=== PATIENT | female | born 1950 | race Caucasian/White ===

== ENCOUNTER → 2020-02-01 11:47 | Outpatient (CLI) | payer MEDICARE, OTHER, SELFPAY ==
--- NOTE | ~2020-02-01 | MM_ITS ---
EXAMINATION: MM screening christoph BI w charlene HISTORY: Screening mammogram TECHNIQUE: Craniocaudal and mediolateral oblique 3-D tomosynthesis images were obtained and synthetic 2-D images were generated. CAD analysis was submitted and interpreted. COMPARISON: 01/01/2019 bilateral digital screening mammogram 11/05/2017 bilateral diagnostic digital mammography and bilateral breast ultrasound examination 10/31/2017 bilateral digital screening mammogram 01/29/2017, 07/24/2016 diagnostic left digital mammogram and left breast ultrasound 07/16/2016 bilateral digital screening mammogram BREAST PARENCHYMAL COMPOSITION: There are scattered areas of fibroglandular density. FINDINGS: Increased size of a low-density circumscribed 3 cm mass in the upper mid left breast. Diagn ostic left mammogram and left breast ultrasound examination are recommended. There is asymmetry in the upper mid and outer right breast, including up to 11.7 mm apparently spicul ated opacity in the upper mid right breast (craniocaudal Tomosynthesis images 37, 38/69. Diagnostic r ight mammogram and right breast ultrasound examination are recommended. IMPRESSION: 1. Bilateral breast masses 2. Bilateral diagnostic mammography and bilateral breast ultrasound examination are recommended. BI-RADS Category 0: Incomplete: Needs additional imaging evaluation. Reviewed, dictated and finalized at location A. HOUSE WHEELER
== END ==
PROVIDERS: Visit Provider Obstetrics & Gynecology Gynecology
DX: Z12.31 Encounter for screening mammogram for malignant neoplasm of breast (principal); R92.8 Other abnormal and inconclusive findings on diagnostic imaging of breast
CPT/HCPCS: 77063; 77067

== ENCOUNTER → 2020-02-22 14:13 | Outpatient (CLI) | payer MEDICARE, OTHER, SELFPAY ==
--- NOTE | ~2020-02-22 | MMUS_ITS ---
EXAMINATION: MM diagnostic mammo BI, US breast LT limited, US breast RT complete HISTORY: Follow-up bilateral breast asymmetries/masses TECHNIQUE: Additional 3-D tomosynthesis images of the breasts were performed and synthetic 2-D images were generated. CAD analysis was submitted and interpreted. Complete right breast ultrasound includi ng all 4 quadrants in the subareolar location. Limited left breast ultrasound of the upper half of th e breast. COMPARISON: Comparison to multiple prior studies sequentially, with oldest reviewed study dated 01/11. BREAST PARENCHYMAL COMPOSITION: Breast composed of scattered areas of fibroglandular density FINDINGS: MAMMOGRAPHIC FINDINGS: . There is a circumscribed oval 3.4 cm left breast mass in the upper central aspect of the breast. Th ere is a 1.3 cm mass in the upper outer quadrant of the right breast which is partially circumscribed . ULTRASOUND: Complete right breast ultrasound: At 12:00, 3 cm from the nipple, there are adjacent hypoechoic guerline s with low level internal echoes and septations. No internal vascularity. No significant posterior fe atures. Left breast ultrasound: There is a 2.9 cm cyst at the 12:00 position, 4 cm from the nipple correspond ing to the mass seen on mammography. At 9:00, 6 cm from the nipple there is a 7 mm cyst. No suspiciou s masses in the left breast to suggest malignancy. IMPRESSION: 1. Probable benign right breast masses. No evidence for malignancy in the left breast. 2. Recommend 6 month follow-up diagnostic right mammogram and ultrasound. BI-RADS category 3, probably benign findings. Reviewed, dictated and finalized at location A. T DIGESTER OPERATOR IMPRESSION: 1. Probable benign right breast masses. No evidence for malignancy in the left breast. 2. Recommend 6 month follow-up diagnostic right mammogram and ultrasound. BI-RADS category 3, probably benign findings. IMPRESSION: 1. Probable benign right breast masses. No evidence for malignancy in the left breast. 2. Recommend 6 month follow-up diagnostic right mammogram and ultrasound. BI-RADS category 3, probably benign findings.
== END ==
PROVIDERS: Visit Provider Nurse Practitioner
DX: R92.8 Other abnormal and inconclusive findings on diagnostic imaging of breast (principal)
CPT/HCPCS: 76641; 76642; 77066

== ENCOUNTER → 2020-09-01 08:49 | Outpatient (CLI) | payer MEDICARE, OTHER, SELFPAY ==
--- NOTE | ~2020-09-01 | MMUS_ITS ---
EXAMINATION: MM diagnostic christoph RT w charlene, US breast RT limited HISTORY: Follow-up right breast masses TECHNIQUE: Additional 3-D tomosynthesis images of right were performed and synthetic 2-D images were generated. CAD analysis was submitted and interpreted. High resolution Limited right breast ultrasoun d was performed. COMPARISON: Comparison to multiple prior studies sequentially, with oldest reviewed study dated 10/31. BREAST PARENCHYMAL COMPOSITION: The breasts are heterogenously dense, which may obscure small masses. FINDINGS: MAMMOGRAPHIC FINDINGS: There is stable mass in the upper outer quadrant of the right breast with ill-defined margins. There are scattered benign-appearing breast calcifications which are not significantly changed. No focal ar ea of architectural distortion is identified. No significant skin thickening. ULTRASOUND: Limited right breast ultrasound: At 12:00, 3 cm from the nipple, there is a complicated cystic mass m easuring 10 x 9 x 8 mm with internal septations and low level internal echoes. There is posterior aco ustic enhancement. No internal vascularity. No significant interval change from prior ultrasound. IMPRESSION: 1. Stable complicated cyst/s of the right breast allowing for differences of technique, likely benign . 2. Recommend 6 month follow-up diagnostic bilateral mammogram and right breast ultrasound BI-RADS category 3, probably benign findings. Reviewed, dictated and finalized at location A. IMPRESSION: 1. Stable complicated cyst/s of the right breast allowing for differences of te chnique, likely benign. 2. Recommend 6 month follow-up diagnostic bilateral mammogram and right breast ultrasound BI-RADS category 3, probably benign findings.
== END ==
PROVIDERS: PCP Internal Medicine; Visit Provider Obstetrics & Gynecology
DX: R92.8 Other abnormal and inconclusive findings on diagnostic imaging of breast (principal)
CPT/HCPCS: 76642; 77061; 77065; G0279

== ENCOUNTER → 2020-11-18 14:43 | Outpatient (CLI) | payer MEDICARE, OTHER, SELFPAY ==
--- NOTE | ~2020-11-18 | DEXA_ITS ---
Bone Density Report Name: lEizabeth Garcia Age: 70 Sex: Female Ethnicity: White Date of : 1950 Indication: osteopenia; monitoring treatment; parental hip fracture; height loss; hysterectomy; Referring Provider: AN, MCKENZIE Study: Bone densitometry was performed. Exam Date: November 18, 2020 Accession number: [id number] Bone Density: Region BMD T-score Z-score Classification AP Spine (L1-L4) 0.869 -1.6 0.5 Osteopenia Femoral Neck (Left) 0.614 -2.1 -0.3 Osteopenia Total Hip (Left) 0.933 -0.1 1.4 Normal Femoral Neck (Right) 0.673 -1.6 0.2 Osteopenia Total Hip (Right) 0.853 -0.7 0.7 Normal Total Hip Mean 0.893 -0.4 1.1 Normal World Health Organization criteria for BMD impression classify patients as: Normal (T-score at or above -1.0), Osteopenia (T-score between -1.0 and -2.5), or Osteoporosis (T-score at or below -2.5). 10-year Fracture Risk: FRAX not reported because: Treated for osteoporosis Previous Exams: Region Exam Age BMD T-score BMD Change BMD Change Date g/cm2 vs Baseline vs Previous AP Spine(L1-L4) 11/18/2020 70 0.869 -1.6 -0.077 0.038* 11/04/2018 68 0.831 -2.0 -0.115 0.069 08/07/2016 66 0.762 -2.6 -0.184* -0.022 01/11/2014 63 0.784 -2.4 -0.163 -0.113 01/07/2012 61 0.896 -1.4 -0.050* 0.058* 12/18/2010 60 0.838 -1.9 -0.108* -0.058* 11/17/2008 58 0.896 -1.4 -0.051* -0.016 07/23/2007 57 0.912 -1.2 -0.034* -0.034* 07/02/2006 56 0.946 -0.9 -0.001 -0.001 12/23/2003 53 0.946 -0.9 Total Hip(Left) 11/18/2020 70 0.933 -0.1 -0.017 0.040* 11/04/2018 68 0.893 -0.4 -0.057 0.014 08/07/2016 66 0.879 -0.5 -0.071 0.007 01/11/2014 63 0.873 -0.6 -0.077 -0.016 01/07/2012 61 0.888 -0.4 -0.062 0.022 12/18/2010 60 0.866 -0.6 -0.084 -0.021 11/17/2008 58 0.886 -0.5 -0.064 -0.104* 07/23/2007 57 0.990 0.4 0.040 0.066* 07/02/2006 56 0.924 -0.1 -0.026 -0.026 08/25/2002 52 0.950 0.1 Total Hip(Right) 11/18/2020 70 0.853 -0.7 -0.034 0.021 11/04/2018 68 0.832 -0.9 -0.056 -0.013 08/07/2016 66 0.845 -0.8 -0.042 -0.054* 01/11/2014 63 0.899 -0.4 0.011 -0.006 01/07/2012 61 0.905 -0.3 0.017 0.097* 12/18/2010 60 0.808 -1.1 -0.080
== END ==
PROVIDERS: PCP Internal Medicine; Visit Provider Nurse Practitioner
DX: M81.0 Age-related osteoporosis without current pathological fracture (principal); M85.88 Other specified disorders of bone density and structure, other site; M85.852 Other specified disorders of bone density and structure, left thigh; M85.851 Other specified disorders of bone density and structure, right thigh
CPT/HCPCS: 77080

== ENCOUNTER → 2021-03-06 07:51 | Outpatient (CLI) | payer MEDICARE, OTHER, SELFPAY ==
--- NOTE | ~2021-03-06 | MMUS_ITS ---
EXAMINATION: MM diagnostic christoph BI w charlene, US breast RT limited HISTORY: Six-month follow-up for probably benign right breast mass TECHNIQUE: Craniocaudal, mediolateral, and mediolateral oblique 3-D tomosynthesis images of the [place] ts were performed and synthetic 2-D images were generated. CAD analysis was submitted and interpreted . High resolution limited right breast ultrasound was performed. COMPARISON: 09/01/2020, 02/22/2020, 02/01/2020, 01/01/2019 BREAST PARENCHYMAL COMPOSITION: The breasts are heterogeneously dense, which may obscure small masses . FINDINGS: MAMMOGRAPHIC FINDINGS: A cyst of the left breast demonstrates interval decrease in size. No suspicious mass, calcification, or architectural distortion are identified in either breast. There are stable scattered benign-appear ing calcifications of the breasts. ULTRASOUND: There is a stable complex cystic and solid mass at the 12:00 location 5 cm from the nipple which rambo ures up to 8 mm. The mass demonstrates posterior acoustic shadowing and no internal vascularity. IMPRESSION: 1. Likely cluster of microcysts at the 12:00 location 5 cm from the nipple on the right breast. 2. Given one year of interval stability, recommend 12 month followup diagnostic mammogram and right b reast ultrasound. BI-RADS category 3, probably benign findings. Reviewed, dictated and finalized at location A. HOUSE TEAM MEMBER IMPRESSION: 1. Likely cluster of microcysts at the 12:00 location 5 cm from the nipple on t he right breast. 2. Given one year of interval stability, recommend 12 month followup diagnostic mammogram and right breast ultrasound. BI-RADS category 3, probably benign findings.
== END ==
PROVIDERS: PCP Internal Medicine; Visit Provider Obstetrics & Gynecology
DX: R92.8 Other abnormal and inconclusive findings on diagnostic imaging of breast (principal)
CPT/HCPCS: 76642; 77062; 77066; G0279

== ENCOUNTER → 2022-01-09 15:32 | Outpatient (CLI) | payer MEDICARE, OTHER, SELFPAY ==
--- NOTE | ~2022-01-09 | XR_ITS ---
XR ankle LT 2V DATE: 01/09/2022 15:48 INDICATION: Left ankle pain TECHNIQUE: AP and lateral views COMPARISON: 01/29/2021 left ankle FINDINGS: There is very prominent plantar and posterior calcaneal enthesopathy. No fracture or dislocation of the ankle or disruption of the ankle mortise. No periosteal reaction or bone destruction. Generalized left ankle soft tissue swelling. IMPRESSION: Left ankle soft tissue swelling Very prominent plantar and posterior calcaneal enthesopathy Reviewed, dictated and finalized at location B. AL SUPERVISOR
== END ==
PROVIDERS: PCP Internal Medicine; Visit Provider Nurse Practitioner Family
DX: M25.572 Pain in left ankle and joints of left foot (principal); M77.32 Calcaneal spur, left foot; M79.89 Other specified soft tissue disorders
CPT/HCPCS: 73600

== ENCOUNTER → 2022-04-13 07:46 | Outpatient (CLI) | payer MEDICARE, OTHER, SELFPAY ==
--- NOTE | ~2022-04-13 | MMUS_ITS ---
EXAMINATION: MM diagnostic christoph BI w charlene, US breast BI complete HISTORY: Follow-up bilateral breast nodules TECHNIQUE: Additional 3-D tomosynthesis images of the breasts were performed and synthetic 2-D images were generated. CAD analysis was submitted and interpreted. High resolution bilateral complete breas t ultrasound was performed. COMPARISON: Comparison to multiple prior studies sequentially, with oldest reviewed study dated 11/05. BREAST PARENCHYMAL COMPOSITION: The breasts are heterogeneously dense, which may obscure small masses FINDINGS: MAMMOGRAPHIC FINDINGS: The breasts are stable. No new masses, calcifications or architectural distortion. Stable appearance to nodule in the lower inner quadrant of the left breast. No suspicious clustered calcifications or a rchitectural distortion. ULTRASOUND: Complete bilateral US of all 4 quadrants of the breasts and retroareolar region was reviewed. Right breast:At 12:00, 4 cm from the nipple, there are 2 oval hypoechoic masses with low level campus interviews intern al echoes measuring 4 mm or less. These are not significantly changed from prior examination allowing for differences of technique. At 3:00, 3 cm from the nipple there is a 3 mm cyst. At 8:00, 10 cm fro m the nipple appears a 3 mm cyst. There is an adjacent 3 mm cyst. At 11:00, 2 cm from the nipple ther e is a cluster of cysts measuring up to 5 mm. Left breast: At 2:00, 2 cm from the nipple there is a 7 mm cyst. At 4:00, 5 cm from the nipple there is a 4 mm cyst. At 8:00, 6 cm from the nipple there is a 6 mm cyst. No suspicious masses in either br east to suggest malignancy. IMPRESSION: 1. No evidence for malignancy in either breast. Benign findings. 2. Routine yearly screening mammogram and regular clinical breast examination are recommended. BI-RADS Category 2: Benign finding(s). Reviewed, dictated and finalized at location B. VANCE COORDINATOR IMPRESSION: 1. No evidence for malignancy in either breast. Benign findings. 2. Routine yearly screening mammogram and regular clinical breast examination a re recommended. BI-RADS Category 2: Benign finding(s).
== END ==
PROVIDERS: PCP Internal Medicine; Visit Provider Obstetrics & Gynecology Gynecology
DX: N60.01 Solitary cyst of right breast (principal)
CPT/HCPCS: 76641; 77062; 77066; G0279

== ENCOUNTER 2022-09-18 08:16 | Outpatient (RCR) | payer MEDICARE, OTHER, SELFPAY ==
[2022-09-18 08:15] VITALS: BMI 35.3
--- NOTE | 2022-09-21 14:04 | PCDIET ---
09/21/2022 Elizabeth reached out inquiring re: specific kcal, grams CHO, Protein and fats. - Per conversation she reports wanting something specific to follow. She says she works better that way . Discussed 1600 kcal/day target ~ 55 gms CHO/meal. - Emphasized balance portions. (plate method) - additional details to be discussed at follow up in October - Encouraged to bring 2 day food log to follow up allowing us to personalize meal plan. FJ
--- NOTE | 2022-10-29 12:40 | PCDIET ---
10/29/22 Pt called to cancel upcoming appt due to father is dying . She is going out of town to see him, unclear when return. Reports she's lost wt also stating I have a long way to go .
== END 2022-12-03 09:52 | disposition home or self-care (01) ==
LOC: ANHDMC 08:16
PROVIDERS: PCP Internal Medicine; Visit Provider Internal Medicine
DX: E11.9 Type 2 diabetes mellitus without complications (principal); E66.09 Other obesity due to excess calories; Z68.32 Body mass index [BMI] 32.0-32.9, adult; Z71.3 Dietary counseling and surveillance
CPT/HCPCS: 97802

== ENCOUNTER → 2022-12-05 11:43 | Outpatient (CLI) | payer MEDICARE, OTHER, SELFPAY ==
--- NOTE | ~2022-12-05 | DEXA_ITS ---
Bone Density Report Name: CANDIDA KEATING Age: 72 Sex: Female Ethnicity: White Date of : 1950 Indication: osteopenia; monitoring treatment; parental hip fracture; height loss; hysterectomy; postmenopausal Referring Provider: MURALI TENA Study: Bone densitometry was performed. Exam Date: December 05, 2022 Accession number: [id number] Bone Density: Region BMD T-score Z-score Classification AP Spine (L1, L3, L4) 0.877 -1.6 0.6 Osteopenia Femoral Neck (Left) 0.704 -1.3 0.6 Osteopenia Total Hip (Left) 0.941 0.0 1.6 Normal Femoral Neck (Right) 0.719 -1.2 0.7 Osteopenia Total Hip (Right) 0.887 -0.5 1.1 Normal Total Hip Mean 0.914 -0.3 1.4 Normal World Health Organization criteria for BMD impression classify patients as: Normal (T-score at or above -1.0), Osteopenia (T-score between -1.0 and -2.5), or Osteoporosis (T-score at or below -2.5). 10-year Fracture Risk: FRAX not reported because: Treated for osteoporosis Previous Exams: Region Exam Age BMD T-score BMD Change BMD Change Date g/cm2 vs Baseline vs Previous AP Spine(L1, L3, L4) 12/05/2022 72 0.877 -1.6 -0.029 0.034 11/18/2020 70 0.843 -1.9 -0.063 0.047* 11/04/2018 68 0.795 -2.3 -0.111 0.073 08/07/2016 66 0.722 -3.0 -0.184* -0.044 01/11/2014 63 0.766 -2.6 -0.140 -0.107 01/07/2012 61 0.873 -1.6 -0.032* 0.063* 12/18/2010 60 0.810 -2.2 -0.096* -0.057* 11/17/2008 58 0.867 -1.7 -0.039* -0.023* 07/23/2007 57 0.890 -1.5 -0.016 -0.016 12/23/2003 53 0.906 -1.3 Total Hip(Left) 12/05/2022 72 0.941 0.0 -0.009 0.008 11/18/2020 70 0.933 -0.1 -0.017 0.040* 11/04/2018 68 0.893 -0.4 -0.057 0.014 08/07/2016 66 0.879 -0.5 -0.071 0.007 01/11/2014 63 0.873 -0.6 -0.077 -0.016 01/07/2012 61 0.888 -0.4 -0.062 0.022 12/18/2010 60 0.866 -0.6 -0.084 -0.021 11/17/2008 58 0.886 -0.5 -0.064 -0.104* 07/23/2007 57 0.990 0.4 0.040 0.040 08/25/2002 52 0.950 0.1 Total Hip(Right) 12/05/2022 72 0.887 -0.5 -0.001 0.034* 11/18/2020 70 0.853 -0.7 -0.034 0.021 11/04/2018 68 0.832 -0.9 -0.056 -0.013 08/07/2016 66 0.845 -0.8 -0.042 -0.054* 01/11/2014 63 0.899 -0.4 0.011 -0.006 01/07/2012 [age]
== END ==
PROVIDERS: PCP Internal Medicine; Visit Provider Obstetrics & Gynecology Gynecology
DX: Z13.820 Encounter for screening for osteoporosis (principal); M81.0 Age-related osteoporosis without current pathological fracture; M85.88 Other specified disorders of bone density and structure, other site; M85.852 Other specified disorders of bone density and structure, left thigh; M85.851 Other specified disorders of bone density and structure, right thigh
CPT/HCPCS: 77080

== ENCOUNTER 2023-05-21 08:09 | Outpatient (CLI) | payer MEDICARE, OTHER, SELFPAY ==
--- NOTE | ~2023-05-21 | MM_ITS ---
EXAMINATION: MM screening christoph BI w charlene HISTORY: Screening mammogram TECHNIQUE: Craniocaudal and mediolateral oblique 3-D tomosynthesis images were obtained and synthetic 2-D images were generated. CAD analysis was submitted and interpreted. COMPARISON: 04/13/2022 diagnostic bilateral mammogram and bilateral complete breast ultrasound 03/02/2021 bilateral diagnostic mammography and Limited right breast ultrasound 09/01/2020 diagnostic right mammogram and limited right breast ultrasound 02/22/2020 bilateral diagnostic mammography and complete right and limited left breast ultrasound 02/01/2020 bilateral screening mammogram BREAST PARENCHYMAL COMPOSITION: There are scattered areas of fibroglandular density. FINDINGS: There are scattered bilateral benign-appearing microcalcifications. There is an 8 mm circumscribed mass in the anterior outer mid left breast. Diagnostic left mammogram and targeted left breast ultrasound examination are recommended. No suspicious mass, architectural distortion, malignant calcification, skin thickening or retraction of either breast is noted otherwise. IMPRESSION: 1. New 8 mm circumscribed mass, anterior outer mid left breast 2. Diagnostic left mammogram and targeted left breast ultrasound examination are recommended BI-RADS Category 0: Incomplete: Needs additional imaging evaluation. Reviewed, dictated and finalized at location A. IMPRESSION: 1. New 8 mm circumscribed mass, anterior outer mid left breast 2. Diagnostic left mammogram and targeted left breast ultrasound examination ar joe recommended BI-RADS Category 0: Incomplete: Needs additional imaging evaluation.
== END 2023-05-21 08:10 ==
LOC: MICIMG 08:12
PROVIDERS: PCP Nurse Practitioner; Visit Provider Nurse Practitioner
DX: Z12.31 Encounter for screening mammogram for malignant neoplasm of breast (principal); R92.8 Other abnormal and inconclusive findings on diagnostic imaging of breast
CPT/HCPCS: 77063; 77067

== ENCOUNTER 2023-05-24 08:20 | Outpatient (CLI) | payer MEDICARE, OTHER, SELFPAY ==
--- NOTE | ~2023-05-24 | MMUS_ITS ---
EXAMINATION: MM diagnostic christoph LT w charlene, US breast LT limited HISTORY: Follow-up left breast asymmetry TECHNIQUE: Additional 3-D tomosynthesis images of the left breast were performed and synthetic 2-D im ages were generated. CAD analysis was submitted and interpreted. High resolution Limited left breast ultrasound was performed. COMPARISON: 05/21/2023 BREAST PARENCHYMAL COMPOSITION: Dense: The breasts are heterogeneously dense, which may obscure small masses FINDINGS: MAMMOGRAPHIC FINDINGS: There is a persistent mass in the upper outer quadrant of the left breast. There are no suspicious ca lcifications or architectural distortion. ULTRASOUND: Limited left breast ultrasound: At 3:00, 4 cm from the nipple, there is a 7 mm simple cyst correspond ing to the mammographic finding. No suspicious sonographic abnormalities to suggest malignancy. IMPRESSION: 1. No evidence for malignancy in the left breast. Benign finding. 2. . Routine yearly screening mammogram and regular clinical breast examination are recommended. BI-RADS Category 2: Benign finding(s). Reviewed, dictated and finalized at location A. IMPRESSION: 1. No evidence for malignancy in the left breast. Benign finding. 2. . Routine yearly screening mammogram and regular clinical breast examination are recommended. BI-RADS Category 2: Benign finding(s).
== END 2023-05-24 08:21 ==
PROVIDERS: PCP Internal Medicine; Visit Provider Obstetrics & Gynecology Gynecology
DX: R92.8 Other abnormal and inconclusive findings on diagnostic imaging of breast (principal)
CPT/HCPCS: 76642; 77061; 77065; G0279

== ENCOUNTER 2024-02-11 12:54 | Inpatient (IN) | payer MEDICARE, OTHER, SELFPAY ==
--- NOTE | ~2024-02-11 | XR_ITS ---
EXAMINATION: XR surgery orthopedic DATE: 02/12/2024 09:37 INDICATION: Left femoral intertrochanteric nailing TECHNIQUE: A fluoroscopic images of the left hip and proximal femur were obtained during procedure pe rformed by Dr. Russell. Radiologist was not present for the imaging or procedure. The amount of fluo roscopy time used during this procedure was 2.5 minutes. COMPARISON: None. FINDINGS: Again seen is an intratrochanteric fracture of the proximal left femur. Subsequent images demonstrate reduction and antegrade intramedullary citlalli with femoral neck dynamic compression screw fixation. Fra cture appears in near-anatomic alignment post fixation. Mild left hip osteoarthritis. Expected small amount of postoperative soft tissue gas at the operative bed. IMPRESSION: 1. Fluoroscopy utilized during reduction and internal fixation of an intratrochanteric fracture of th e proximal left femur. See procedure note for further detail. Reviewed, dictated and finalized at location A. SPORTATION MODELER IMPRESSION: 1. Fluoroscopy utilized during reduction and internal fixation of an intratroch anteric fracture of the proximal left femur. See procedure note for further det ail.
--- NOTE | ~2024-02-11 | XR_ITS ---
AP view of the pelvis and AP and lateral views of the left hip Clinical history: Pain Findings: There is acute intertrochanteric fracture of the proximal left femur. Fracture is mildly di splaced.. There is mild degenerative change of the superolateral aspect of the left hip joint.. Soft tissues are unremarkable. Impression: Acute intertrochanteric fracture of the proximal left femur, as above. Reviewed, dictated and finalized at location . D CARE CENTER ADMINISTRATOR Impression: Acute intertrochanteric fracture of the proximal left femur, as above.
--- NOTE | ~2024-02-11 | XR_ITS ---
EXAMINATION: XR chest 1V portable DATE: 02/12/2024 06:24 INDICATION: Left hip fracture for preoperative assessment TECHNIQUE: frontal view of the chest was obtained. COMPARISON: Chest CT dated 08/19/2014 FINDINGS: Mild linear discoid atelectasis/scarring at the lateral left lower lung zone. Subtle chronic nodular opacity projecting along the left heart border which demonstrated fat attenuation on prior CT consist ent with a benign hamartoma. No other airspace opacities, pulmonary edema, pleural effusion or pneumo thorax. Heart size is normal. Tortuous thoracic aorta and small hiatal hernia. IMPRESSION: 1. Mild atelectasis/scarring at the lateral left lower lung zone. No acute cardiopulmonary disease. 2. Small hiatal hernia. Reviewed, dictated and finalized at location A. GER AREA IMPRESSION: 1. Mild atelectasis/scarring at the lateral left lower lung zone. No acute card iopulmonary disease. 2. Small hiatal hernia.
[2024-02-11 12:57] VITALS: BP 181/115; PULSE 100; RESP 17; TEMP 37.1; O2SAT 100
[2024-02-11] MEDS: HYDROcodone/acetaminophen (*CRX) 5-325 MG TABLET 1 TAB PO (13:40)
--- NOTE | 2024-02-11 14:07 | ED_ITS ---
HPI - Fall General Chief Complaint: Fall Stated Complaint: mechanical GLF, L hip pain Time Seen by Provider: 02/11/24 13:04 Source: patient and EMS Mode of arrival: EMS Limitations: no limitations History of Present Illness HPI Narrative: Patient presents after mechanical fall. She was at work but leaving to go to lunch when she states she mis-stepped. She fell and immediately experienced left hip pain. Pain is 10/10 severity. EMS noted that her leg was shortened and rotated. She denies any paresthesias. Patient previously underwent left knee replacement electively with Dr. Arsalan Weaver through [facility] at [place] and the procedure went well although she did have significant muscle spasms after the surgery. She had been trialing multiple medications in regimens for this as well as her osteoarthritis. Currently on Celebrex. Not on anticoagulation. Patient states she has a lot of anxiety about being in hospital as she spent several months with her son in hospital who ultimately did pass away a few years ago on 02/12 so that anniversary is coming up. PCP/OBGyn is Dr Mckeon. Related Data Home Medications ?Medication ?Instructions ?Recorded ?Confirmed ?Last Taken ?Type cholecalciferol (vitamin D3) 1,250 50,000 unit PO 2XW 03/19/19 02/11/24 Unknown History mcg (50,000 unit) capsule estradiol 4 mcg vaginal insert 4 mcg vaginal 2XW 03/19/19 02/11/24 Unknown History (Imvexxy Maintenance Pack) calcium carbonate [Calcium 600] 1 tablet PO BID 11/04/23 02/11/24 02/11/24 History celecoxib 100 mg capsule (Celebrex) 100 mg PO BID PRN pain 11/04/23 02/11/24 Unknown History Allergies Allergy/AdvReac Type Severity Reaction Status Date / Time Sulfa (Sulfonamide Allergy Unknown Rash Verified 02/11/24 13:05 Antibiotics) ezetimibe Allergy Cramping Verified 02/11/24 13:05 of the Muscles tramadol AdvReac Severe Verified 02/11/24 13:05 Headache PMFSH Past Medical History Medical History White coat syndrome with hypertension Dyslipidemia Type 2 diabetes mellitus Degenerative joint disease Vitamin D deficiency Herpes zoster Surgical History Surgical History (Updated 02/13/24 @ 06:13 by Genny Toledo MD) History of arthroplasty of right knee (05/2023) Dr Arsalan Weaver [facility] [place] History of tonsillectomy History of total abdominal hysterectomy (2000) History of appendectomy Family History Family History Other Diabetes mellitus Social History Social History (Updated 02/13/24 @ 06:10 by Genny Toledo MD) Social History: Son on February 12 after prolonged hospitalization Surrogate medical decision maker: Peri Barker, daughter. Code status: Full code. Smoking status: Never smoker Alcohol intake: never Substance use: never Do You Feel Safe in your Home?: Yes Lack of Transportation: No Lack of Food: Never True Current Housing: I Have Housing Concerned About Future Housing: No Difficulty Paying Gas/Electric Bills: No Difficulty Paying for Meds: No Currently Unemployed: No Education: Associate Degree Difficulty w/ Childcare or Family Care: No Additional living arrangements comments: Lives alone in [place]. 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 Spiritual care concerns: No Exam 2 Narrative: GENERAL: Well-appearing, well-nourished, and in no acute distress. HEAD: Normocephalic, atraumatic. EYES: Non injected, non icteric ENT: Nares clear, no rhinorrhea or epistaxis. NECK: Supple. CHEST: Speaking in full sentences. No respiratory distress. HEART: Regular rate and rhythm. Palpable DP pulse on L. ABDOMEN: Soft, nondistended. EXTREMITIES: No lower extremity edema. Left leg shortened and rotated. SKIN: Warm, dry, no rash. NEURO: No focal deficits. Alert and oriented x3. Sensation intact to gross touch throughout legs. 5/5 strength with bilateral ankle flexion/dorsiflexion though full ROM limited secondary to pain. PSYCH: Congruent mood and affect. Slightly anxious but calm , engaged in care. Course Vital Signs Vital signs: Vital Signs Temperature 98.8 F 02/11/24 12:57 Pulse Rate 100 02/11/24 12:57 Respiratory Rate 17 02/11/24 12:57 Blood Pressure 181/115 H 02/11/24 12:57 Pulse Oximetry 100 02/11/24 12:57 Oxygen Delivery Room Air 02/11/24 12:57 Temperature 98.1 F 02/13/24 05:15 Pulse Rate 81 02/13/24 05:15 Respiratory Rate 18 02/13/24 05:15 Blood Pressure 128/53 L 02/13/24 05:15 Pulse Oximetry 94 02/13/24 05:15 Oxygen Delivery Room Air 02/12/24 20:00 Oxygen Flow Rate 2 02/12/24 11:15 MDM - Fall MDM Narrative Medical decision making narrative: Patient presents after an accidental mechanical fall with acute onset left hip pain and on physical exam noted to have a shortened and rotated leg. In the emergency department she is afebrile vital signs notable for hypertension. Fracture as below. [place] has not managed symptoms and so she is given Dilaudid and feels much better after this. Anthony catheter be placed given she is nonweightbearing at this time. She has hyperglycemia without anion gap acidosis. Patient does inquire about contacting her previous orthopedic surgeon Dr Arsalan Weaver , [facility] at [place] who performed her previous orthopedic surgery, left knee replacement. I did 1st discussed the case with on-call orthopedic surgeon Dr. Russell who did agree that it was reasonable and appropriate to try but if unsuccessful, he would take the consult. Brionna CHILD SUPPORT OFFICER for Orthopedics at [place] at 15:00. Unfortunately Dr Weaver unavailable all week and no one else available at this time. Discussed with patient and her daughter via phone. Patient does have significant medical anxiety as a patient which she acknowledges. Some of this is related to significant muscle spasms that she had after her left knee replacement surgery but also significant is the fact that she spent several months with her son in a hospital and ultimately he did a few years ago on February 12 and we are approaching the anniversary of his . Patient is otherwise calm and appropriate. She is offered anxiolytics but does decline at this time she states she is feeling better. Patient discussed with on-call hospitalist and admitted. Lab Data Attestation: I reviewed the patient's lab results. Lab results narrative: Leukocytosis 02/13/24 05:27 02/13/24 05:27 Labs: Lab Results 02/11/24 02/12/24 02/12/24 Range/Units 14:43 05:35 08:10 WBC 12.2 H 11.1 H (4.5-10.0) K/mm3 RBC 4.66 4.38 (4.2-5.4) M/mm3 Hgb 12.3 11.6 L (12.0-15.0) g/dL Hct 38.8 35.8 L (37.0-47.0) % MCV 83.3 81.7 (80-100) fl MCH 26.4 26.5 (26-34) pg MCHC 31.7 L 32.4 (32-36) g/dl RDW 15.7 H 15.6 H (11.5-14.5) % Plt Count 253 227 (150-375) k/mm3 MPV 10.9 H 11.0 H (7.4-10.4) fl Immature Gran % (Auto) 0.7 H (0-0.5) % Neut % (Auto) 78.2 H (45.5-73.1) % Lymph % (Auto) 11.9 L (18.3-44.2) % [place] % (Auto) 7.9 (2.6-8.5) % Eos % (Auto) 0.7 (0-4.4) % Baso % (Auto) 0.6 (0.2-1.2) % Lymph # (Auto) 1.46 (0.9-3.2) K/mm3 [place]pine # (Auto) 1.0 H (0.1-0.6) K/mm3 Eos # (Auto) 0.1 (0-0.3) K/mm3 Baso # (Auto) 0.1 (0.0-0.1) K/mm3 Abs Immat Gran (auto) 0.08 H (0.00-0.031) K/mm3 Absolute Neuts (auto) 9.6 H (1.3-6.7) K/mm3 Absolute Nucleated RBC 0.000 (0.0-0.012) K/mm3 Nucleated RBC % 0.0 (0.0-0.2) % PT 13.6 (11.1-14.7) Seconds INR 1.0 APTT 25.1 (22.3-36.8) Seconds Sodium 139 134 L (137-145) mmol/L Potassium 3.8 3.7 (3.4-5.0) mmol/L Chloride 107 105 (98-107) mmol/L Carbon Dioxide 29 25 (22-30) mmol/L Anion Gap 3 L 4 (4-12) mmol/L BUN 22 H 18 H (7-17) mg/dL Creatinine 0.80 0.70 (0.7-1.0) mg/dL Estim Creat Clear Calc 66 74 ml/min Estimated GFR > 60 > 60 (59 - ) Glucose 138 H 145 H (65-110) mg/dL POC Capillary Glucose 150 H (65-105) mg/dl Calcium 9.4 9.0 (8.4-10.2) mg/dL Total Bilirubin 1.1 (0.2-1.3) mg/dL AST 29 (14-36) U/L ALT 21 (6-35) U/L Alkaline Phosphatase 90 (38-126) U/L Total Protein 7.0 (6.3-8.2) g/dL Albumin 3.9 (3.5-5.1) g/dL Imaging Data Radiologist's impression: Impression: Acute intertrochanteric fracture of the proximal left femur, as above. Discharge Plan Discharge Clinical Impression: Hyperglycemia, Fall, Leukocytosis Closed intertrochanteric fracture of left femur Qualifiers: Encounter type: initial encounter Patient Disposition: Still a Patient Condition: Stable
[2024-02-11] MEDS: HYDROmorphone HCL INJ (*CRX) 1 MG/ML SYR IV PUSH ×2 (14:32→21:39)
[2024-02-11 14:52] LABS: Basophils Absolute Auto 0.1 K/mm3 (0.0-0.1); Basophils Percent Auto 0.6 % (0.2-1.2); Eosinophils Absolute Auto 0.1 K/mm3 (0-0.3); Eosinophils Percent Auto 0.7 % (0-4.4); Hematocrit 38.8 % (37.0-47.0); Hemoglobin 12.3 g/dL (12.0-15.0); Immature Granulocyte Absolute 0.08 K/mm3 (0.00-0.031); Immature Granulocyte Percent A 0.7 % (0-0.5); Lymphocytes Absolute Auto 1.46 K/mm3 (0.9-3.2); Lymphocytes Percent Auto 11.9 % (18.3-44.2); Mean Corpuscular HGB Conc 31.7 g/dl (32-36); Mean Corpuscular Hemoglobin 26.4 pg (26-34); Mean Corpuscular Volume 83.3 fl (80-100); Mean Platelet Volume 10.9 fl (7.4-10.4); Monocytes Percent Auto 7.9 % (2.6-8.5); Neutrophils Absolute Auto 9.6 K/mm3 (1.3-6.7); Neutrophils Percent Auto 78.2 % (45.5-73.1); Platelet Count Result 253 k/mm3 (150-375); Red Blood Count 4.66 M/mm3 (4.2-5.4); Red Cell Distribution Width 15.7 % (11.5-14.5); White Blood Count 12.2 K/mm3 (4.5-10.0)
[2024-02-11 15:01] LABS: Prothrombin Time 13.6 Seconds (11.1-14.7)
[2024-02-11 15:02] LABS: Anion Gap 3 mmol/L (4-12); Blood Urea Nitrogen 22 mg/dL (7-17); Calcium 9.4 mg/dL (8.4-10.2); Carbon Dioxide 29 mmol/L (22-30); Chloride 107 mmol/L (98-107); Estimated CRCL calculation 66 ml/min; Estimated Glomerular Filt Rate > 60; Glucose 138 mg/dL (65-110); Partial Thromboplastin Time 25.1 Seconds (22.3-36.8); Potassium 3.8 mmol/L (3.4-5.0); Sodium 139 mmol/L (137-145)
[2024-02-11 17:10] VITALS: BP 188/86; PULSE 91; RESP 18; O2SAT 98
[2024-02-11 17:45] VITALS: BMI 35.2
--- NOTE | 2024-02-11 17:45 | ADMGEN ---
This patient, Elizabeth Garcia, was admitted to Medical Room 252-01. Patient/family oriented to hospital policies and general routines including ID bracelet, bed and alarms, visiting hours, pain management, procedures, bathroom and other care routines, personal items, smoking policy, room service/diet, and visiting hours. Information on how to activate the Rapid Response Team has been discussed. Patient/Family are encouraged to report perceived risks to care and to ask questions if they do not understand what they are told or what they should do.
[2024-02-11] MEDS: HYDROmorphone HCL INJ (*CRX) 1 MG/ML SYR 0.5 MG IV PUSH (18:08)
[2024-02-11 18:40] VITALS: BP 154/75; PULSE 91; RESP 16; O2SAT 98
--- NOTE | 2024-02-11 19:06 | ECG_ITS ---
Test Date: 2024-02-12 07:36:04 Measurements Intervals [place] Rate: 87 P: 50 MO: 150 QRS: 41 QRSD: 84 T: 29 QT: 371 QTc: 447 Interpretive Statements SINUS RHYTHM No previous ECG available for comparison Electronically Signed On 02-17-2024 10:13:39 MANAGER STYLIST by Luke Javier M.D.
[2024-02-11 21:31] VITALS: BP 148/91; PULSE 92; RESP 14; TEMP 36.9; O2SAT 100
--- NOTE | 2024-02-11 23:53 | PM.IMHP ---
H&P: HPI History of Present Illness Date/Time: 02/11/24 23:30 Chief Complaint: Left hip pain after a fall. Narrative: This is a very pleasant 73-year-old female with degenerative joint disease, dyslipidemia, white coat syndrome with hypertension, and type 2 diabetes mellitus who presented to the emergency department via EMS for evaluation of left hip pain after fall. The patient provides the following history. While leaving work today she tripped on a curb and fell hard onto her left side with immediate pain in her left hip. There was no head trauma or loss of consciousness in the fall and she has no other complaints besides the left hip pain. She denies lightheadedness, dizziness, recent cold and flu symptoms, chest pain, pleuritic pain, palpitations, vomiting, diarrhea, and dysuria. Of note, she recently finished antibiotics for a dental abscess of the left upper molar and she is in a process of having a root canal done in upcoming weeks. She is not have any pain or discomfort at this time. In the ED: Blood pressure was 181/115 on arrival in the remainder of her vital signs were stable. Labs were significant for WBC count of 12.2, platelet 253, INR 1.0, BUN 22, creatinine 0.80, glucose 138. Radiograph showed an acute inter trochanteric fracture of the proximal left femur. She is being admitted in this setting for pain control and orthopedic consultation for repair. Review of Systems Review of Systems: 12 systems were reviewed and are negative except for as per HPI. [facility] Past Medical History Medical History (Updated 02/12/24 @ 06:48 by Ashli Dang PA-C) White coat syndrome with hypertension Dyslipidemia Type 2 diabetes mellitus Degenerative joint disease Vitamin D deficiency Herpes zoster Surgical History Surgical History History of arthroplasty of right knee (05/2023) History of arthroscopy of right knee History of tonsillectomy History of total abdominal hysterectomy (2000) History of appendectomy Family History Family History Other Diabetes mellitus Social History Social History (Updated 02/12/24 @ 06:48 by Ashli Dang PA-C) Social History: Surrogate medical decision maker: Peri Barker, daughter. Code status: Full code. Smoking status: Never smoker Alcohol intake: never Substance use: never Do You Feel Safe in your Home?: Yes Lack of Transportation: No Lack of Food: Never True Current Housing: I Have Housing Concerned About Future Housing: No Difficulty Paying Gas/Electric Bills: No Difficulty Paying for Meds: No Currently Unemployed: No Education: Associate Degree Difficulty w/ Childcare or Family Care: No Additional living arrangements comments: Lives alone in [place]. 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 Spiritual care concerns: No Meds Home Medications and Allergies Home Medications ?Medication ?Instructions ?Recorded ?Confirmed ?Type cholecalciferol (vitamin D3) 1,250 50,000 unit PO 2XW 03/19/19 02/11/24 History mcg (50,000 unit) capsule estradiol 4 mcg vaginal insert 4 mcg vaginal 2XW 03/19/19 02/11/24 History (Imvexxy Maintenance Pack) calcium carbonate [Calcium 600] 1 tablet PO BID 11/04/23 02/11/24 History celecoxib 100 mg capsule (Celebrex) 100 mg PO BID PRN pain 11/04/23 02/11/24 History fenofibrate 160 mg tablet 160 mg PO DAILY #90 tabs 11/04/23 02/11/24 Rx Allergies Allergy/AdvReac Type Severity Reaction Status Date / Time Sulfa (Sulfonamide Allergy Unknown Rash Verified 02/11/24 13:05 Antibiotics) ezetimibe Allergy Cramping Verified 02/11/24 13:05 of the Muscles tramadol AdvReac Severe Verified 02/11/24 13:05 Headache Vital Signs Vital Signs - 24 hr 02/11/24 12:57 02/11/24 17:10 02/11/24 17:45 Temperature 98.8 F Pulse Rate 100 91 Respiratory Rate 17 18 Blood Pressure 181/115 H 188/86 H Pulse Oximetry 100 98 Oxygen Delivery Room Air Room Air 02/11/24 18:40 02/11/24 20:00 02/11/24 21:31 Temperature 98.5 F Pulse Rate 91 92 Respiratory Rate 16 14 Blood Pressure 154/75 H 148/91 H Pulse Oximetry 98 100 Oxygen Delivery Room Air Exam Narrative: General: Well-developed, nontoxic-appearing female supine in bed in no acute distress. Weight: 90.9 kg. BMI: 35.2. HEENT: Normocephalic, atraumatic. PERRL, EOMI. Sclera anicteric. Oral mucosa moist. Neck: Supple. Respiratory: Lungs are clear to auscultation bilaterally. Cardiovascular: Regular rate and rhythm with S1-S2. Gastrointestinal: Abdomen is soft, nontender, and nondistended with positive bowel sounds. Skin: Warm and dry. No rash or lesions on limited exam. Extremities: No cyanosis, clubbing, or edema. Radial and pedal pulses intact. Musculoskeletal: Left leg is shortened and externally rotated. Mild swelling about the left hip. No gross deformity. Neurological: Alert. Cranial nerves 2-12 are grossly intact. No gross focal deficits to casual conversation. Psychiatric: Pleasant and cooperative with normal mood and affect. Judgment and insight intact. H&P: Results Labs Labs: Short CBC 02/11/24 Range/Units 14:43 WBC 12.2 H (4.5-10.0) K/mm3 Hgb 12.3 (12.0-15.0) g/dL Hct 38.8 (37.0-47.0) % Plt Count 253 (150-375) k/mm3 BMP 02/11/24 14:43 Sodium 139 Potassium 3.8 Chloride 107 Carbon Dioxide 29 BUN 22 H Creatinine 0.80 Glucose 138 H Calcium 9.4 Impressions Hip/Pelvis X-Ray 02/11/24 13:36 Impression: Acute intertrochanteric fracture of the proximal left femur, as above. Assessment and Plan Assessment and plan (1) Closed intertrochanteric fracture of left femur: Qualifiers: Encounter type: initial encounter Code(s): S72.142A - Displaced intertrochanteric fracture of left femur, initial encounter for closed fracture Status: Acute (2) Type 2 diabetes mellitus: Code(s): E11.9 - Type 2 diabetes mellitus without complications Status: Acute (3) White coat syndrome with hypertension: Code(s): I10 - Essential (primary) hypertension Status: Acute (4) Dyslipidemia: Code(s): E78.5 - Hyperlipidemia, unspecified Status: Acute Plan The patient presented to the emergency department for evaluation of left hip pain after mechanical fall as detailed in HPI. Labs, imaging, EKG, and all reports were personally reviewed. Radiographs show an inter trochanteric fracture of the left hip. Analgesics and antiemetics are available as needed. She will be NPO after midnight for probable surgical repair tomorrow. Blood pressures have been running high, likely due to pain, and will be monitored closely. She admits that she has pretty significant white coat hypertension. She is not currently on medication for her blood pressures. Random glucose was 138 her most recent hemoglobin A1c was 6.5%. Initiate sliding scale insulin, Accu-Cheks, and hypoglycemic protocol. Her home medications will be reviewed and resumed as appropriate. Findings and treatment plan were discussed with the patient. Questions were solicited and answered to satisfaction. The patient's medical management will be taken over by the hospitalist team in a.m. Quality VTE Prophylaxis VTE prophylaxis: mechanical ordered If No VTE Prophylaxis Answer both mechanical and pharmacologic: Reason no pharmacologic proph: medical contraindication (anticipate surgery tomorrow) The patient has been admitted under observation status. Hospitalist [facility] Advance Care Plan I have confirmed that the patient's Advanced Care Plan is present, code status is documented, or surrogate decision maker is listed in patient medical record.: Yes Medication Reconciliation I have utilized all available resources to obtain, update and review the patients current medications (includes all prescriptions, OTC, herbals, cannabis, and nutritional supplements).: Yes
[2024-02-12] VITALS (14 sets, daily range): BP systolic 144–186; BP diastolic 58–91; PULSE 75–91; RESP 12–19; TEMP 36.3–37.3; O2SAT 96–100
[2024-02-12] MEDS: HYDROmorphone HCL INJ (*CRX) 1 MG/ML SYR IV PUSH ×4 (00:55→16:51)
[2024-02-12 06:00] LABS: Hematocrit 35.8 % (37.0-47.0); Hemoglobin 11.6 g/dL (12.0-15.0); Mean Corpuscular HGB Conc 32.4 g/dl (32-36); Mean Corpuscular Hemoglobin 26.5 pg (26-34); Mean Corpuscular Volume 81.7 fl (80-100); Platelet Count Result 227 k/mm3 (150-375); Red Blood Count 4.38 M/mm3 (4.2-5.4); Red Cell Distribution Width 15.6 % (11.5-14.5); White Blood Count 11.1 K/mm3 (4.5-10.0)
[2024-02-12 06:11] LABS: Alanine Aminotransferase 21 U/L (6-35); Albumin Level 3.9 g/dL (3.5-5.1); Alkaline Phosphatase 90 U/L (38-126); Anion Gap 4 mmol/L (4-12); Aspartate Amino Transferase 29 U/L (14-36); Bilirubin,Total 1.1 mg/dL (0.2-1.3); Blood Urea Nitrogen 18 mg/dL (7-17); Carbon Dioxide 25 mmol/L (22-30); Chloride 105 mmol/L (98-107); Estimated CRCL calculation 74 ml/min; Estimated Glomerular Filt Rate > 60; Glucose 145 mg/dL (65-110); Potassium 3.7 mmol/L (3.4-5.0); Sodium 134 mmol/L (137-145)
--- NOTE | 2024-02-12 07:09 | P.CONOP_ITS ---
Assessment and Plan Assessment and plan (1) Closed intertrochanteric fracture of left femur: Qualifiers: Encounter type: initial encounter Code(s): S72.142A - Displaced intertrochanteric fracture of left femur, initial encounter for closed fracture Status: Acute Assessment and Plan: Patient has an intertrochanteric fracture of her left hip. She slipped and fell and has shortening and pain in the leg. She was ambulatory before this. Clearly she would benefit from open reduction internal fixation. I have discussed this in detail risks benefits limitations and alternatives. We will proceed today. History of Present Illness HPI Consult date: 02/12/24 Chief complaint: Left Intertrochanteric Femur Fracture Narrative: Patient tripped and fell suffering an intertrochanteric fracture of the left hip. Review of Systems 2 Review of Systems: 12 systems were reviewed and are negativ e except for as per HPI. FORMERLY [facility], [facility]–1983 Past Medical History Medical History (Updated 02/12/24 @ 06:48 by Ashli Dang PA-C) White coat syndrome with hypertension Dyslipidemia Type 2 diabetes mellitus Degenerative joint disease Vitamin D deficiency Herpes zoster Surgical History Surgical History History of arthroplasty of right knee (05/2023) History of arthroscopy of right knee History of tonsillectomy History of total abdominal hysterectomy (2000) History of appendectomy Family History Family History Other Diabetes mellitus Social History Social History (Updated 02/12/24 @ 06:48 by Ashli Dang PA-C) Social History: Surrogate medical decision maker: Peri Barker, daughter. Code status: Full code. Smoking status: Never smoker Alcohol intake: never Substance use: never Do You Feel Safe in your Home?: Yes Lack of Transportation: No Lack of Food: Never True Current Housing: I Have Housing Concerned About Future Housing: No Difficulty Paying Gas/Electric Bills: No Difficulty Paying for Meds: No Currently Unemployed: No Education: Associate Degree Difficulty w/ Childcare or Family Care: No Additional living arrangements comments: Lives alone in [place]. 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 Spiritual care concerns: No Meds Home Medications and Allergies Home Medications ?Medication ?Instructions ?Recorded ?Confirmed ?Type cholecalciferol (vitamin D3) 1,250 50,000 unit PO 2XW 03/19/19 02/11/24 History mcg (50,000 unit) capsule estradiol 4 mcg vaginal insert 4 mcg vaginal 2XW 03/19/19 02/11/24 History (Imvexxy Maintenance Pack) calcium carbonate [Calcium 600] 1 tablet PO BID 11/04/23 02/11/24 History celecoxib 100 mg capsule (Celebrex) 100 mg PO BID PRN pain 11/04/23 02/11/24 History fenofibrate 160 mg tablet 160 mg PO DAILY #90 tabs 11/04/23 02/11/24 Rx Allergies Allergy/AdvReac Type Severity Reaction Status Date / Time Sulfa (Sulfonamide Allergy Unknown Rash Verified 02/11/24 13:05 Antibiotics) ezetimibe Allergy Cramping Verified 02/11/24 13:05 of the Muscles tramadol AdvReac Severe Verified 02/11/24 13:05 Headache Vital Signs Vital Signs - 24 hr 02/11/24 12:57 02/11/24 17:10 02/11/24 17:45 Temperature 98.8 F Pulse Rate 100 91 Respiratory Rate 17 18 Blood Pressure 181/115 H 188/86 H Pulse Oximetry 100 98 Oxygen Delivery Room Air Room Air 02/11/24 18:40 02/11/24 20:00 02/11/24 21:31 Temperature 98.5 F Pulse Rate 91 92 Respiratory Rate 16 14 Blood Pressure 154/75 H 148/91 H Pulse Oximetry 98 100 Oxygen Delivery Room Air 02/12/24 05:35 Temperature 98.0 F Pulse Rate 78 Respiratory Rate 16 Blood Pressure 153/82 H Pulse Oximetry 98 Oxygen Delivery Exam 2 Narrative: NVI Leg shortened and Externally Rotated Pain with motion Radiology Reports: Comments: Patient: RadhaElizabeth AP view of the pelvis and AP and lateral views of the left hip Clinical history: Pain Findings: There is acute intertrochanteric fracture of the proximal left femur. Fracture is mildly displaced.. There is mild degenerative change of the superolateral aspect of the left hip joint.. Soft tissues are unremarkable. Impression: Acute intertrochanteric fracture of the proximal left femur, as above. Reviewed, dictated and finalized at location M. MANAGER 2 Ankle X-Ray 01/09/22 Hip/Pelvis X-Ray 02/11/24 Knee X-Ray 05/25/21 Stress View Joint X-Ray 01/19/21 Orthopedics Result Report 05/29/21 Results Labs 02/12/24 05:35 02/12/24 05:35 Labs: Abnormal lab results 02/11/24 02/12/24 Range/Units 14:43 05:35 WBC 12.2 H 11.1 H (4.5-10.0) K/mm3 Hgb 11.6 L (12.0-15.0) g/dL Hct 35.8 L (37.0-47.0) % MCHC 31.7 L (32-36) g/dl RDW 15.7 H 15.6 H (11.5-14.5) % MPV 10.9 H 11.0 H (7.4-10.4) fl Immature Gran % (Auto) 0.7 H (0-0.5) % Neut % (Auto) 78.2 H (45.5-73.1) % Lymph % (Auto) 11.9 L (18.3-44.2) % [place] # (Auto) 1.0 H (0.1-0.6) K/mm3 Abs Immat Gran (auto) 0.08 H (0.00-0.031) K/mm3 Absolute Neuts (auto) 9.6 H (1.3-6.7) K/mm3 Sodium 134 L (137-145) mmol/L Anion Gap 3 L (4-12) mmol/L BUN 22 H 18 H (7-17) mg/dL Glucose 138 H 145 H (65-110) mg/dL H & H 02/11/24 02/12/24 Range/Units 14:43 05:35 Hgb 12.3 11.6 L (12.0-15.0) g/dL Hct 38.8 35.8 L (37.0-47.0) % Coagulation 02/11/24 Range/Units 14:43 INR 1.0 All other labs normal.
--- NOTE | 2024-02-12 07:16 | P.PNAN_ITS ---
Anes - Eval Pre Procedure Procedure: Operation Date: 02/12/24 08:00 Proposed Procedures p Left Intertrochanteric Nail(Left) - Joaquim Russell MD Date/Time: 02/12/24 07:16 Surgeon: Drew Pre Op Diagnosis: Left Intertrochanteric Femur Fracture Patient Data Age: 73 Gender: F Height: 1.68 m Weight: 98.9 kg Last Vital Signs Temp 98.0 F 02/12/24 05:35 Pulse 78 02/12/24 05:35 Resp 16 02/12/24 05:35 BP 153/82 H 02/12/24 05:35 Pulse Ox 98 02/12/24 05:35 O2 Del Method Room Air 02/11/24 20:00 Allergies Allergy/AdvReac Type Severity Reaction Status Date / Time Sulfa (Sulfonamide Allergy Unknown Rash Verified 02/11/24 13:05 Antibiotics) ezetimibe Allergy Cramping Verified 02/11/24 13:05 of the Muscles tramadol AdvReac Severe Verified 02/11/24 13:05 Headache Home Medications ?Medication ?Instructions ?Recorded ?Confirmed ?Type cholecalciferol (vitamin D3) 1,250 50,000 unit PO 2XW 03/19/19 02/11/24 History mcg (50,000 unit) capsule estradiol 4 mcg vaginal insert 4 mcg vaginal 2XW 03/19/19 02/11/24 History (Imvexxy Maintenance Pack) calcium carbonate [Calcium 600] 1 tablet PO BID 11/04/23 02/11/24 History celecoxib 100 mg capsule (Celebrex) 100 mg PO BID PRN pain 11/04/23 02/11/24 History fenofibrate 160 mg tablet 160 mg PO DAILY #90 tabs 11/04/23 02/11/24 Rx Laboratory Tests 02/11/24 02/12/24 14:43 05:35 WBC 12.2 H K/mm3 11.1 H K/mm3 (4.5-10.0) (4.5-10.0) RBC 4.66 M/mm3 4.38 M/mm3 (4.2-5.4) (4.2-5.4) Hgb 12.3 g/dL 11.6 L g/dL (12.0-15.0) (12.0-15.0) Hct 38.8 % 35.8 L % (37.0-47.0) (37.0-47.0) MCV 83.3 fl 81.7 fl (80-100) (80-100) MCH 26.4 pg 26.5 pg (26-34) (26-34) MCHC 31.7 L g/dl 32.4 g/dl (32-36) (32-36) RDW 15.7 H % 15.6 H % (11.5-14.5) (11.5-14.5) Plt Count 253 k/mm3 227 k/mm3 (150-375) (150-375) MPV 10.9 H fl 11.0 H fl (7.4-10.4) (7.4-10.4) Immature Gran % (Auto) 0.7 H % (0-0.5) Neut % (Auto) 78.2 H % (45.5-73.1) Lymph % (Auto) 11.9 L % (18.3-44.2) [place] % (Auto) 7.9 % (2.6-8.5) Eos % (Auto) 0.7 % (0-4.4) Baso % (Auto) 0.6 % (0.2-1.2) Lymph # (Auto) 1.46 K/mm3 (0.9-3.2) [place] # (Auto) 1.0 H K/mm3 (0.1-0.6) Eos # (Auto) 0.1 K/mm3 (0-0.3) Baso # (Auto) 0.1 K/mm3 (0.0-0.1) Abs Immat Gran (auto) 0.08 H K/mm3 (0.00-0.031) Absolute Neuts (auto) 9.6 H K/mm3 (1.3-6.7) Absolute Nucleated RBC 0.000 K/mm3 (0.0-0.012) Nucleated RBC % 0.0 % (0.0-0.2) PT 13.6 Seconds (11.1-14.7) INR 1.0 APTT 25.1 Seconds (22.3-36.8) Sodium 139 mmol/L 134 L mmol/L (137-145) (137-145) Potassium 3.8 mmol/L 3.7 mmol/L (3.4-5.0) (3.4-5.0) Chloride 107 mmol/L 105 mmol/L (98-107) (98-107) Carbon Dioxide 29 mmol/L 25 mmol/L (22-30) (22-30) Anion Gap 3 L mmol/L 4 mmol/L (4-12) (4-12) BUN 22 H mg/dL 18 H mg/dL (7-17) (7-17) Creatinine 0.80 mg/dL 0.70 mg/dL (0.7-1.0) (0.7-1.0) Estim Creat Clear Calc 66 ml/min 74 ml/min Estimated GFR > 60 > 60 (59 - ) (59 - ) Glucose 138 H mg/dL 145 H mg/dL (65-110) (65-110) Calcium 9.4 mg/dL 9.0 mg/dL (8.4-10.2) (8.4-10.2) Total Bilirubin 1.1 mg/dL (0.2-1.3) AST 29 U/L (14-36) ALT 21 U/L (6-35) Alkaline Phosphatase 90 U/L (38-126) Total Protein 7.0 g/dL (6.3-8.2) Albumin 3.9 g/dL (3.5-5.1) Patient hx anesthesia problems: none Family hx anesthesia problems: none Results Review: All pre-operative results and documents have been reviewed as part of the pre- operative evaluation. [facility] Past Medical History Medical History White coat syndrome with hypertension Dyslipidemia Type 2 diabetes mellitus Degenerative joint disease Vitamin D deficiency Herpes zoster Surgical History Surgical History History of arthroplasty of right knee (05/2023) History of arthroscopy of right knee History of tonsillectomy History of total abdominal hysterectomy (2000) History of appendectomy Family History Family History Other Diabetes mellitus Social History Social History Social History: Surrogate medical decision maker: Peri Barker, daughter. Code status: Full code. Smoking status: Never smoker Alcohol intake: never Substance use: never Do You Feel Safe in your Home?: Yes Lack of Transportation: No Lack of Food: Never True Current Housing: I Have Housing Concerned About Future Housing: No Difficulty Paying Gas/Electric Bills: No Difficulty Paying for Meds: No Currently Unemployed: No Education: Associate Degree Difficulty w/ Childcare or Family Care: No Additional living arrangements comments: Lives alone in [place]. 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 Spiritual care concerns: No Exam Day of Procedure 02/12/24 07:16
[2024-02-12] MEDS: ONDANSETRON INJ 4 MG/2 ML VIAL IV PUSH ×2 (07:25→10:23)
--- NOTE | 2024-02-12 08:02 | P.PNAN_ITS ---
Anes - Initial Pre Proc Eval Procedure: Operation Date: 02/12/24 08:00 Proposed Procedures p Left Intertrochanteric Nail(Left) - Joaquim Russell MD Date/Time: 02/12/24 08:02 Surgeon: Zac Gill MD Pre Op Diagnosis: Left Intertrochanteric Femur Fracture Patient Data Age: 73 Gender: F Height: 1.68 m Weight: 98.9 kg Last Vital Signs Temp 98.0 F 02/12/24 05:35 Pulse 78 02/12/24 05:35 Resp 16 02/12/24 05:35 BP 153/82 H 02/12/24 05:35 Pulse Ox 98 02/12/24 05:35 O2 Del Method Room Air 02/11/24 20:00 Allergies Allergy/AdvReac Type Severity Reaction Status Date / Time Sulfa (Sulfonamide Allergy Unknown Rash Verified 02/11/24 13:05 Antibiotics) ezetimibe Allergy Cramping Verified 02/11/24 13:05 of the Muscles tramadol AdvReac Severe Verified 02/11/24 13:05 Headache Home Medications ?Medication ?Instructions ?Recorded ?Confirmed ?Type cholecalciferol (vitamin D3) 1,250 50,000 unit PO 2XW 03/19/19 02/11/24 History mcg (50,000 unit) capsule estradiol 4 mcg vaginal insert 4 mcg vaginal 2XW 03/19/19 02/11/24 History (Imvexxy Maintenance Pack) calcium carbonate [Calcium 600] 1 tablet PO BID 11/04/23 02/11/24 History celecoxib 100 mg capsule (Celebrex) 100 mg PO BID PRN pain 11/04/23 02/11/24 History fenofibrate 160 mg tablet 160 mg PO DAILY #90 tabs 11/04/23 02/11/24 Rx Laboratory Tests 02/11/24 02/12/24 14:43 05:35 WBC 12.2 H K/mm3 11.1 H K/mm3 (4.5-10.0) (4.5-10.0) RBC 4.66 M/mm3 4.38 M/mm3 (4.2-5.4) (4.2-5.4) Hgb 12.3 g/dL 11.6 L g/dL (12.0-15.0) (12.0-15.0) Hct 38.8 % 35.8 L % (37.0-47.0) (37.0-47.0) MCV 83.3 fl 81.7 fl (80-100) (80-100) MCH 26.4 pg 26.5 pg (26-34) (26-34) MCHC 31.7 L g/dl 32.4 g/dl (32-36) (32-36) RDW 15.7 H % 15.6 H % (11.5-14.5) (11.5-14.5) Plt Count 253 k/mm3 227 k/mm3 (150-375) (150-375) MPV 10.9 H fl 11.0 H fl (7.4-10.4) (7.4-10.4) Immature Gran % (Auto) 0.7 H % (0-0.5) Neut % (Auto) 78.2 H % (45.5-73.1) Lymph % (Auto) 11.9 L % (18.3-44.2) [place] % (Auto) 7.9 % (2.6-8.5) Eos % (Auto) 0.7 % (0-4.4) Baso % (Auto) 0.6 % (0.2-1.2) Lymph # (Auto) 1.46 K/mm3 (0.9-3.2) [place] # (Auto) 1.0 H K/mm3 (0.1-0.6) Eos # (Auto) 0.1 K/mm3 (0-0.3) Baso # (Auto) 0.1 K/mm3 (0.0-0.1) Abs Immat Gran (auto) 0.08 H K/mm3 (0.00-0.031) Absolute Neuts (auto) 9.6 H K/mm3 (1.3-6.7) Absolute Nucleated RBC 0.000 K/mm3 (0.0-0.012) Nucleated RBC % 0.0 % (0.0-0.2) PT 13.6 Seconds (11.1-14.7) INR 1.0 APTT 25.1 Seconds (22.3-36.8) Sodium 139 mmol/L 134 L mmol/L (137-145) (137-145) Potassium 3.8 mmol/L 3.7 mmol/L (3.4-5.0) (3.4-5.0) Chloride 107 mmol/L 105 mmol/L (98-107) (98-107) Carbon Dioxide 29 mmol/L 25 mmol/L (22-30) (22-30) Anion Gap 3 L mmol/L 4 mmol/L (4-12) (4-12) BUN 22 H mg/dL 18 H mg/dL (7-17) (7-17) Creatinine 0.80 mg/dL 0.70 mg/dL (0.7-1.0) (0.7-1.0) Estim Creat Clear Calc 66 ml/min 74 ml/min Estimated GFR > 60 > 60 (59 - ) (59 - ) Glucose 138 H mg/dL 145 H mg/dL (65-110) (65-110) Calcium 9.4 mg/dL 9.0 mg/dL (8.4-10.2) (8.4-10.2) Total Bilirubin 1.1 mg/dL (0.2-1.3) AST 29 U/L (14-36) ALT 21 U/L (6-35) Alkaline Phosphatase 90 U/L (38-126) Total Protein 7.0 g/dL (6.3-8.2) Albumin 3.9 g/dL (3.5-5.1) Patient hx anesthesia problems: none Family hx anesthesia problems: none Results Review: All pre-operative results and documents have been reviewed as part of the pre- operative evaluation. [facility] Past Medical History Medical History White coat syndrome with hypertension Dyslipidemia Type 2 diabetes mellitus Degenerative joint disease Vitamin D deficiency Herpes zoster Surgical History Surgical History History of arthroplasty of right knee (05/2023) History of arthroscopy of right knee History of tonsillectomy History of total abdominal hysterectomy (2000) History of appendectomy Family History Family History Other Diabetes mellitus Social History Social History Social History: Surrogate medical decision maker: Peri Barker, daughter. Code status: Full code. Smoking status: Never smoker Alcohol intake: never Substance use: never Do You Feel Safe in your Home?: Yes Lack of Transportation: No Lack of Food: Never True Current Housing: I Have Housing Concerned About Future Housing: No Difficulty Paying Gas/Electric Bills: No Difficulty Paying for Meds: No Currently Unemployed: No Education: Associate Degree Difficulty w/ Childcare or Family Care: No Additional living arrangements comments: Lives alone in [place]. 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 Spiritual care concerns: No Anes - Eval Final PreProcedure Day of Procedure 02/12/24 08:02 Patient weight: obese Heart: regular rate and rhythm Lungs: clear to auscultation Airway: Mallampati scale class II Neurological: alert and oriented Last oral intake: >/= 8 hours ASA classification: III Emergent: no Anesthetic plan: proceed Anesthesia type and monitoring: general ETT and standard monitoring Results Review: All pre-operative results and documents have been reviewed as part of the pre- operative evaluation. HTN, pt reports 140/90 bps at home despite being elevated here. Borderline DM. Pt had mechanical fall. EKG w NSR. Informed Consent: The patient's anesthetic plan and its attendant risks and benefits were discussed with the patient/family/POA. Questions were solicited and answers provided to the satisfaction of the patient/family/POA.
[2024-02-12] MEDS: VANCOMYCIN 1,000 MG/NS 250 ML 1,000 MG/250 ML BAG 250 MG IVPB (08:07)
[2024-02-12] MEDS: ceFAZolin 2 GM/D5W 50 ML 2 GM/50 ML BAG IVPB ×2 (08:14→16:51)
--- NOTE | 2024-02-12 08:14 | WPDHPUPDATE1 ---
History and Physical Update Update Date/Time: 02/12/24 08:14 History and Physical has been reviewed, including an updated exam of the patient. There are NO changes in the patient's condition. Risks, benefits, and alternatives have been discussed and questions answered. Patient agrees to proceed with procedure.
[2024-02-12 08:35] LABS: Glucose Point of Care 150 mg/dl (65-105)
--- NOTE | 2024-02-12 09:28 | P.OP_ITS ---
Procedure Note - Detailed Date of Procedure 02/12/24 Pre-op Diagnosis Left Intertrochanteric Femur Fracture Post-op Diagnosis Same Procedure Performed Open reduction internal fixation left intertrochanteric fracture with a trochanteric nail Surgeon Joaquim Russell MD [employer]iliary [employer] Operator [place] Anesthesia General Indications Hip Fracture Description of Procedure Patient was brought to operating room #7. A general anesthetic was administered. She was placed on the fracture table and gently the fracture was manipulated back to an anatomic position. She was then sterilely prepped and draped. A longitudinal incision was made over the tip of the trochanter. This was broached with the an awl. Guide citlalli placed and one-step Reamer used. 9 x 125 nail was placed with a 100 millimeter screw in the center of the head. The nail fit nicely quite tightly in the canal and was stable. At this point and the fracture appeared near anatomic. The wounds irrigated. Hemostasis was obtained. The wounds were closed with #2 Vicryl, 2-0 Vicryl, and manisha. Patient left the operating room satisfactory condition. [employer] Troch Nail Estimated Blood Loss 200 Complications No immediate complications Condition Stable Disposition PACU [facility] Billing Surgery - Charge Forward: Surgery Billing ([id number] Troch Nail for IT Fx. Also bill for consult mid level)
[2024-02-12] MEDS: LACTATED RINGERS 1,000 ML 30 ML IV CONT ×2 (09:56→10:36)
[2024-02-12] MEDS: fentaNYL CITRATE INJ (*CRX) 100 MCG/2 ML VIAL 25 MCG IV PUSH ×8 (10:12→10:40)
[2024-02-12 12:15] LABS: Glucose Point of Care 153 mg/dl (65-105)
--- NOTE | 2024-02-12 13:19 | PM.IMPN ---
Progress Note: A&P Assessment and Plan (1) Closed intertrochanteric fracture of left femur: Qualifiers: Encounter type: initial encounter Code(s): S72.142A - Displaced intertrochanteric fracture of left femur, initial encounter for closed fracture Status: Acute Assessment and Plan: 02/12/24 Immediately post-op pain and nausea addressed. (2) Type 2 diabetes mellitus: Code(s): E11.9 - Type 2 diabetes mellitus without complications Status: Acute Assessment and Plan: Continue SSI. (3) White coat syndrome with hypertension: Code(s): I10 - Essential (primary) hypertension Status: Acute Assessment and Plan: BP 148/76 post-op Monitor (4) Dyslipidemia: Code(s): E78.5 - Hyperlipidemia, unspecified Status: Acute Assessment and Plan: Resume fenofibrate when diet is tolerated. Subjective Date/time seen: 02/12/24 13:19 Interval history: Awake post-op and having severe left hip pain and nausea. Intolerant to hydrocodone (n/v) and tramadol (h/a). No cp or sob. No emesis yet. Denied pain elsewhere. Review of Systems Review of Systems: All systems reviewed & are unremarkable except as noted in HPI and below Exam Narrative: HEENT: PERRL, sclerae nonicteric, pharyngeal mucosa pink and intact NECK: No JVD. CHEST: Clear to auscultation. Normal effort. HEART: NL S1/S2, regular, no murmur. ABDOMEN: BS+, soft, nontender, no mass, no bruits EXTREMITIES: No cyanosis, edema, or clubbing NEUROLOGIC: CN intact and symmetric to inspection. MUSCULOSKELETAL: Tone and strength symmetric to socially responsible investment adviser, dorsiflexion, plantar flexion. PSYCH: Alert. Oriented to person, place, and time. Objective Data Vital Signs Vital Signs: Vital Signs - 24 hr 02/11/24 17:10 02/11/24 17:45 02/11/24 18:40 Temperature Pulse Rate 91 91 Respiratory Rate 18 16 Blood Pressure 188/86 H 154/75 H Pulse Oximetry 98 98 Oxygen Delivery Room Air Oxygen Flow Rate 02/11/24 20:00 02/11/24 21:31 02/12/24 05:35 Temperature 98.5 F 98.0 F Pulse Rate 92 78 Respiratory Rate 14 16 Blood Pressure 148/91 H 153/82 H Pulse Oximetry 100 98 Oxygen Delivery Room Air Oxygen Flow Rate 02/12/24 09:56 02/12/24 10:00 02/12/24 10:15 Temperature 98.2 F Pulse Rate 85 83 78 Respiratory Rate 18 16 12 Blood Pressure 174/88 H 169/90 H 174/90 H Pulse Oximetry 100 100 96 Oxygen Delivery Simple Face Mask Simple Face Mask Nasal Cannula Oxygen Flow Rate 10 10 2 02/12/24 10:30 02/12/24 10:45 02/12/24 11:00 Temperature Pulse Rate 75 78 83 Respiratory Rate 15 19 15 Blood Pressure 169/91 H 172/82 H 181/85 H Pulse Oximetry 97 100 97 Oxygen Delivery Nasal Cannula Nasal Cannula Nasal Cannula Oxygen Flow Rate 2 2 2 02/12/24 11:15 02/12/24 11:30 02/12/24 11:49 Temperature 97.6 F 97.4 F L Pulse Rate 81 80 82 Respiratory Rate 15 18 18 Blood Pressure 186/89 H 177/69 H 163/83 H Pulse Oximetry 100 100 100 Oxygen Delivery Nasal Cannula Oxygen Flow Rate 2 02/12/24 12:19 Temperature 97.8 F Pulse Rate 87 Respiratory Rate 18 Blood Pressure 156/77 H Pulse Oximetry 100 Oxygen Delivery Oxygen Flow Rate Intake/Output Intake/Output: Intake & Output 02/09/24 02/10/24 02/11/24 02/12/24 23:59 23:59 23:59 23:59 Intake Total 950 Output Total 950 Balance 0 Meds/Results Medications: Active Medications Generic Name Dose Route Start Last Admin Trade Name Freq PRN Reason Stop Dose Admin Acetaminophen 650 mg 02/11/24 15:37 Acetaminophen 325 Mg Tablet PO Q4H PRN Fever Hydrocodone Bitart/Acetaminophen 1 tab 02/12/24 11:30 Hydrocodone/Acetaminophen (*Crx) 5-325 Mg Tablet PO Q4H PRN Pain Rated 4-6 Hydrocodone Bitart/Acetaminophen 1 tab 02/12/24 11:30 Hydrocodone/Acetaminophen (*Crx) 7.5-325 Mg Tablet PO Q4H PRN Pain Rated 7-10 Cyclobenzaprine HCl 10 mg 02/12/24 11:30 Cyclobenzaprine Hcl 10 Mg Tablet PO Q8H PRN Muscle Spasm Dextrose 12.5 gm 02/12/24 05:06 Dextrose 50% 25 Gm/50 Ml Syringe IV PUSH PRN PRN Hypoglycemia Protocol Fentanyl Citrate 25 mcg 02/12/24 09:38 02/12/24 10:40 Fentanyl Citrate Inj (*Crx) 100 Mcg/2 Ml Vial IV PUSH 25 mcg Q2M PRN Administration Pain Glucagon 1 mg 02/12/24 05:06 Glucagon For Inj 1 Mg Vial IM PRN PRN Hypoglycemia Protocol Glucose 15 gm 02/12/24 05:06 Glucose Oral Gel 15 Gm Of Glucse In 37.5 Gm Tube PO PRN PRN Hypoglycemia Protocol Hydromorphone HCl 1 mg 02/12/24 11:30 Hydromorphone Hcl Inj (*Crx) 1 Mg/Ml Syr IV PUSH Q2H PRN Breakthrough Pain Rated 7-10 or NPO Hydromorphone HCl 0.5 mg 02/12/24 11:30 Hydromorphone Hcl Inj (*Crx) 1 Mg/Ml Syr IV PUSH Q2H PRN Breakthrough Pain Rated 4-6 or NPO Hydroxyzine Pamoate 50 mg 02/12/24 11:30 Hydroxyzine Pamoate 25 Mg Capsule PO Q4H PRN Itching Dextrose 1,000 mls @ 100 mls/hr 02/12/24 05:06 Dextrose 5% 1,000 Ml IVPB PRN PRN Hypoglycemia Protocol Lactated Ringer's 1,000 mls @ 30 mls/hr 02/12/24 09:40 02/12/24 10:36 Lr - Lactated Ringers Iv IV CONT Infused .Q24H RENITA Infusion Lactated Ringer's 1,000 mls @ 30 mls/hr 02/12/24 09:40 02/12/24 11:26 Lr - Lactated Ringers Iv IV CONT Infused .Q24H RENITA Infusion Sodium Chloride 1,000 mls @ 125 mls/hr 02/12/24 11:30 Normal Saline Iv IV CONT .Q8H R[facility]ITA Cefazolin Sodium 2 gm in 50 mls @ 100 mls/hr 02/12/24 16:00 Ancef 2 Gm/D5w 50 Ml IVPB 02/13/24 08:29 Q8H RENITA Ibuprofen 800 mg in 200 mls @ 400 mls/hr 02/12/24 11:30 Caldolor 800 Mg/200 Ml IVPB Q6H PRN Breakthrough Pain Rated 1-3 or NPO Insulin Aspart 3 - 6 units 02/12/24 08:00 02/12/24 12:46 Insulin Aspart (*Bkc) 100 Units/Ml SUB-Q Not Given TIDWM [facility] Protocol Insulin Aspart 1 - 3 units 02/12/24 21:00 Insulin Aspart (*Bkc) 100 Units/Ml SUB-Q HS [facility] Protocol Naloxone HCl 0.1 mg 02/12/24 11:30 Naloxone Hcl 0.4 Mg/Ml Vial IV PUSH Q2M PRN Opiate Reversal Ondansetron HCl 4 mg 02/12/24 09:38 02/12/24 10:23 Ondansetron Inj 4 Mg/2 Ml Vial IV PUSH 4 mg ONCE PRN Administration Nausea Ondansetron HCl 4 mg 02/12/24 11:30 Ondansetron Inj 4 Mg/2 Ml Vial IV PUSH Q4H PRN Nausea And Vomiting Polyethylene Glycol 17 gm 02/13/24 09:00 Polyethylene Glycol 3350 17 Gm Powd.Pack PO QAM [facility] Rivaroxaban 10 mg 02/12/24 17:00 Rivaroxaban 10 Mg Tablet PO DAILY@17 [facility] Senna/Docusate Sodium 2 tab 02/12/24 17:00 Senna/Docusate Sodium Tablet PO BID [facility] Tramadol HCl 50 mg 02/12/24 11:30 Tramadol Hcl (*Crx) 50 Mg Tablet PO Q4H PRN Pain Rated 1-3 Radiology Results: ITS Impressions Hip/Pelvis X-Ray 02/11/24 13:36 Impression: Acute intertrochanteric fracture of the proximal left femur, as above. Chest X-Ray 02/12/24 07:33 IMPRESSION: 1. Mild atelectasis/scarring at the lateral left lower lung zone. No acute cardiopulmonary disease. 2. Small hiatal hernia. Intraoperative X-Ray 02/12/24 09:46 IMPRESSION: 1. Fluoroscopy utilized during reduction and internal fixation of an intratrochanteric fracture of the proximal left femur. See procedure note for further detail. Labs Labs: Laboratory Results - last 24 hr 02/11/24 02/12/24 02/12/24 14:43 05:35 08:10 WBC 12.2 H 11.1 H RBC 4.66 4.38 Hgb 12.3 11.6 L Hct 38.8 35.8 L MCV 83.3 81.7 MCH 26.4 26.5 MCHC 31.7 L 32.4 RDW 15.7 H 15.6 H Plt Count 253 227 MPV 10.9 H 11.0 H Immature Gran % (Auto) 0.7 H Neut % (Auto) 78.2 H Lymph % (Auto) 11.9 L [place] % (Auto) 7.9 Eos % (Auto) 0.7 Baso % (Auto) 0.6 Lymph # (Auto) 1.46 [place] # (Auto) 1.0 H Eos # (Auto) 0.1 Baso # (Auto) 0.1 Abs Immat Gran (auto) 0.08 H Absolute Neuts (auto) 9.6 H Absolute Nucleated RBC 0.000 Nucleated RBC % 0.0 PT 13.6 INR 1.0 APTT 25.1 Sodium 139 134 L Potassium 3.8 3.7 Chloride 107 105 Carbon Dioxide 29 25 Anion Gap 3 L 4 BUN 22 H 18 H Creatinine 0.80 0.70 Estim Creat Clear Calc 66 74 Estimated GFR > 60 > 60 Glucose 138 H 145 H POC Capillary Glucose 150 H Calcium 9.4 9.0 Total Bilirubin 1.1 AST 29 ALT 21 Alkaline Phosphatase 90 Total Protein 7.0 Albumin 3.9 02/12/24 11:57 WBC RBC Hgb Hct MCV MCH MCHC RDW Plt Count MPV Immature Gran % (Auto) Neut % (Auto) Lymph % (Auto) [place] % (Auto) Eos % (Auto) Baso % (Auto) Lymph # (Auto) [place] # (Auto) Eos # (Auto) Baso # (Auto) Abs Immat Gran (auto) Absolute Neuts (auto) Absolute Nucleated RBC Nucleated RBC % PT INR APTT Sodium Potassium Chloride Carbon Dioxide Anion Gap BUN Creatinine Estim Creat Clear Calc Estimated GFR Glucose POC Capillary Glucose 153 H Calcium Total Bilirubin AST ALT Alkaline Phosphatase Total Protein Albumin Hospitalist MIPS Advance Care Plan I have confirmed that the patient's Advanced Care Plan is present, code status is documented, or surrogate decision maker is listed in patient medical record.: Yes
[2024-02-12] MEDS: SODIUM CHLORIDE 0.9% IV 1,000 ML 125 ML IV CONT (13:39)
[2024-02-12] MEDS: RIVAROXABAN 10 MG TABLET PO (16:52)
[2024-02-12] MEDS: SENNA/DOCUSATE SODIUM TABLET 2 TAB PO (16:52)
[2024-02-12 16:53] LABS: Glucose Point of Care 163 mg/dl (65-105)
[2024-02-12] MEDS: IBUPROFEN IV 800 MG/200 ML 800 MG/200 ML BAG 400 MG IVPB (19:54)
[2024-02-12] MEDS: oxyCODONE/ACETAMINOPHEN (*CRX) 5-325 MG TABLET 1 TABLET PO (19:55)
[2024-02-12 20:34] LABS: Glucose Point of Care 178 mg/dl (65-105)
[2024-02-13] MEDS: ceFAZolin 2 GM/D5W 50 ML 2 GM/50 ML BAG IVPB ×2 (00:17→08:09)
[2024-02-13] MEDS: oxyCODONE/ACETAMINOPHEN (*CRX) 10-325 MG TABLET 1 TAB PO ×3 (00:18→08:08)
[2024-02-13 01:15] VITALS: BP 125/54; PULSE 84; RESP 18; TEMP 36.8; O2SAT 96
[2024-02-13 05:15] VITALS: BP 128/53; PULSE 81; RESP 18; TEMP 36.7; O2SAT 94
[2024-02-13 05:49] LABS: Basophils Absolute Auto 0.1 K/mm3 (0.0-0.1); Basophils Percent Auto 0.7 % (0.2-1.2); Eosinophils Absolute Auto 0.1 K/mm3 (0-0.3); Eosinophils Percent Auto 0.7 % (0-4.4); Hematocrit 25.6 % (37.0-47.0); Hemoglobin 8.1 g/dL (12.0-15.0); Immature Granulocyte Absolute 0.05 K/mm3 (0.00-0.031); Immature Granulocyte Percent A 0.5 % (0-0.5); Lymphocytes Absolute Auto 1.87 K/mm3 (0.9-3.2); Lymphocytes Percent Auto 17.5 % (18.3-44.2); Mean Corpuscular HGB Conc 31.6 g/dl (32-36); Mean Corpuscular Hemoglobin 26.9 pg (26-34); Mean Platelet Volume 11.2 fl (7.4-10.4); Monocytes Absolute Auto 1.8 K/mm3 (0.1-0.6); Monocytes Percent Auto 16.4 % (2.6-8.5); Neutrophils Absolute Auto 6.9 K/mm3 (1.3-6.7); Neutrophils Percent Auto 64.2 % (45.5-73.1); Platelet Count Result 180 k/mm3 (150-375); Red Blood Count 3.01 M/mm3 (4.2-5.4); Red Cell Distribution Width 15.9 % (11.5-14.5); White Blood Count 10.7 K/mm3 (4.5-10.0)
[2024-02-13 06:00] LABS: Anion Gap 1 mmol/L (4-12); Blood Urea Nitrogen 24 mg/dL (7-17); Calcium 8.1 mg/dL (8.4-10.2); Carbon Dioxide 26 mmol/L (22-30); Chloride 105 mmol/L (98-107); Estimated CRCL calculation 49 ml/min; Estimated Glomerular Filt Rate 49; Glucose 126 mg/dL (65-110); Potassium 3.6 mmol/L (3.4-5.0); Sodium 132 mmol/L (137-145)
[2024-02-13 06:07] VITALS: BP 128/53; PULSE 81; RESP 18; TEMP 36.7; O2SAT 94
--- NOTE | 2024-02-13 07:18 | P.PNOP_ITS ---
Progress Note: A&P Assessment and Plan (1) Closed intertrochanteric fracture of left femur: Qualifiers: Encounter type: initial encounter Code(s): S72.142A - Displaced intertrochanteric fracture of left femur, initial encounter for closed fracture Status: Acute Assessment and Plan: Patient is status postop reduction internal fixation left intertrochanteric fracture. Overall she is following a typical course and doing well. The dressing is intact and she is moving her legs. Will try to ambulate today. She lives alone will need placement at this time. She may be toe-touch weight- bearing now. Subjective Subjective Date/Time Seen: 02/13/24 07:18 Post Op day: 1 Principal diagnosis: Intertrochanteric fracture left hip Review of Systems Review of Systems: 12 systems were reviewed and are negativ e except for as per HPI. Exam Narrative: On exam the patient can wiggle her toes. Pain is under control. The dressing is intact. Objective Data Vital Signs Vital Signs: Vital Signs - 24 hr 02/12/24 09:56 02/12/24 10:00 02/12/24 10:15 Temperature 98.2 F Pulse Rate 85 83 78 Respiratory Rate 18 16 12 Blood Pressure 174/88 H 169/90 H 174/90 H Pulse Oximetry 100 100 96 Oxygen Delivery Simple Face Mask Simple Face Mask Nasal Cannula Oxygen Flow Rate 10 10 2 02/12/24 10:30 02/12/24 10:45 02/12/24 11:00 Temperature Pulse Rate 75 78 83 Respiratory Rate 15 19 15 Blood Pressure 169/91 H 172/82 H 181/85 H Pulse Oximetry 97 100 97 Oxygen Delivery Nasal Cannula Nasal Cannula Nasal Cannula Oxygen Flow Rate 2 2 2 02/12/24 11:15 02/12/24 11:30 02/12/24 11:49 Temperature 97.6 F 97.4 F L Pulse Rate 81 80 82 Respiratory Rate 15 18 18 Blood Pressure 186/89 H 177/69 H 163/83 H Pulse Oximetry 100 100 100 Oxygen Delivery Nasal Cannula Oxygen Flow Rate 2 02/12/24 12:19 02/12/24 13:19 02/12/24 18:50 Temperature 97.8 F 98.3 F 99.1 F Pulse Rate 87 90 91 Respiratory Rate 18 18 18 Blood Pressure 156/77 H 148/76 H 144/58 H Pulse Oximetry 100 99 98 Oxygen Delivery Oxygen Flow Rate 02/12/24 20:00 02/12/24 21:15 02/13/24 01:15 Temperature 99.2 F 98.2 F Pulse Rate 91 84 Respiratory Rate 18 18 Blood Pressure 162/66 H 125/54 L Pulse Oximetry 100 96 Oxygen Delivery Room Air Oxygen Flow Rate 02/13/24 05:15 02/13/24 06:07 Temperature 98.1 F 98.1 F Pulse Rate 81 81 Respiratory Rate 18 18 Blood Pressure 128/53 L 128/53 L Pulse Oximetry 94 94 Oxygen Delivery Oxygen Flow Rate Intake/Output Intake/Output: Intake & Output 02/10/24 02/11/24 02/12/24 02/13/24 23:59 23:59 23:59 23:59 Intake Total 1670 50 Output Total 1400 400 Balance 270 -350 Meds/Results Medications: Active Medications Generic Name Dose Route Start Last Admin Trade Name Freq PRN Reason Stop Dose Admin Acetaminophen 650 mg 02/11/24 15:37 Acetaminophen 325 Mg Tablet PO Q4H PRN Fever Cyclobenzaprine HCl 10 mg 02/12/24 11:30 Cyclobenzaprine Hcl 10 Mg Tablet PO Q8H PRN Muscle Spasm Dextrose 12.5 gm 02/12/24 05:06 Dextrose 50% 25 Gm/50 Ml Syringe IV PUSH PRN PRN Hypoglycemia Protocol Glucagon 1 mg 02/12/24 05:06 Glucagon For Inj 1 Mg Vial IM PRN PRN Hypoglycemia Protocol Glucose 15 gm 02/12/24 05:06 Glucose Oral Gel 15 Gm Of Glucse In 37.5 Gm Tube PO PRN PRN Hypoglycemia Protocol Hydromorphone HCl 1 mg 02/12/24 11:30 02/12/24 16:51 Hydromorphone Hcl Inj (*Crx) 1 Mg/Ml Syr IV PUSH 1 mg Q2H PRN Administration Breakthrough Pain Rated 7-10 or NPO Hydromorphone HCl 0.5 mg 02/12/24 11:30 Hydromorphone Hcl Inj (*Crx) 1 Mg/Ml Syr IV PUSH Q2H PRN Breakthrough Pain Rated 4-6 or NPO Hydroxyzine Pamoate 50 mg 02/12/24 11:30 Hydroxyzine Pamoate 25 Mg Capsule PO Q4H PRN Itching Dextrose 1,000 mls @ 100 mls/hr 02/12/24 05:06 Dextrose 5% 1,000 Ml IVPB PRN PRN Hypoglycemia Protocol Lactated Ringer's 1,000 mls @ 30 mls/hr 02/12/24 09:40 02/12/24 10:36 Lr - Lactated Ringers Iv IV CONT Infused .Q24H RENITA Infusion Lactated Ringer's 1,000 mls @ 30 mls/hr 02/12/24 09:40 02/12/24 11:26 Lr - Lactated Ringers Iv IV CONT Infused .Q24H RENITA Infusion Sodium Chloride 1,000 mls @ 125 mls/hr 02/12/24 11:30 02/12/24 13:39 Normal Saline Iv IV CONT 125 mls/hr .Q8H RENITA Administration Cefazolin Sodium 2 gm in 50 mls @ 100 mls/hr 02/12/24 16:00 02/13/24 00:45 Ancef 2 Gm/D5w 50 Ml IVPB 02/13/24 08:29 Infused Q8H RENITA Infusion Ibuprofen 800 mg in 200 mls @ 400 mls/hr 02/12/24 11:30 02/12/24 20:20 Caldolor 800 Mg/200 Ml IVPB Infused Q6H PRN Infusion Breakthrough Pain Rated 1-3 or NPO Insulin Aspart 3 - 6 units 02/12/24 08:00 02/12/24 16:52 Insulin Aspart (*Bkc) 100 Units/Ml SUB-Q Not Given TIDWM [facility] Protocol Insulin Aspart 1 - 3 units 02/12/24 21:00 02/12/24 22:00 Insulin Aspart (*Bkc) 100 Units/Ml SUB-Q Not Given HS [facility] Protocol Naloxone HCl 0.1 mg 02/12/24 11:30 Naloxone Hcl 0.4 Mg/Ml Vial IV PUSH Q2M PRN Opiate Reversal Ondansetron HCl 4 mg 02/12/24 09:38 02/12/24 10:23 Ondansetron Inj 4 Mg/2 Ml Vial IV PUSH 4 mg ONCE PRN Administration Nausea Ondansetron HCl 4 mg 02/12/24 11:30 Ondansetron Inj 4 Mg/2 Ml Vial IV PUSH Q4H PRN Nausea And Vomiting Oxycodone/Acetaminophen 1 tablet 02/12/24 13:22 02/12/24 19:55 Oxycodone/Acetaminophen (*Crx) 5-325 Mg Tablet PO 1 tablet Q4H PRN Administration Pain Rated 4-6 Oxycodone/Acetaminophen 1 tab 02/12/24 13:23 02/13/24 04:37 Oxycodone/Acetaminophen (*Crx) 10-325 Mg Tablet PO 1 tab Q4H PRN Administration Pain Rated 7-10 Polyethylene Glycol 17 gm 02/13/24 09:00 Polyethylene Glycol 3350 17 Gm Powd.Pack PO QAM [facility] Promethazine HCl 12.5 mg 02/12/24 13:19 Promethazine Hcl 25 Mg/Ml Ampul IV PUSH Q4H PRN Nausea And Vomiting Rivaroxaban 10 mg 02/12/24 17:00 02/12/24 16:52 Rivaroxaban 10 Mg Tablet PO 10 mg DAILY@17 [facility] Administration Senna/Docusate Sodium 2 tab 02/12/24 17:00 02/12/24 16:52 Senna/Docusate Sodium Tablet PO 2 tab BID RENITA Administration Radiology Results: ITS Impressions Hip/Pelvis X-Ray 02/11/24 13:36 Impression: Acute intertrochanteric fracture of the proximal left femur, as above. Chest X-Ray 02/12/24 07:33 IMPRESSION: 1. Mild atelectasis/scarring at the lateral left lower lung zone. No acute cardiopulmonary disease. 2. Small hiatal hernia. Intraoperative X-Ray 02/12/24 09:46 IMPRESSION: 1. Fluoroscopy utilized during reduction and internal fixation of an intratrochanteric fracture of the proximal left femur. See procedure note for further detail. Labs Labs: Laboratory Results - last 24 hr 02/12/24 02/12/24 02/12/24 08:10 11:57 16:37 WBC RBC Hgb Hct MCV MCH MCHC RDW Plt Count MPV Immature Gran % (Auto) Neut % (Auto) Lymph % (Auto) [place] % (Auto) Eos % (Auto) Baso % (Auto) Lymph # (Auto) [place] # (Auto) Eos # (Auto) Baso # (Auto) Abs Immat Gran (auto) Absolute Neuts (auto) Absolute Nucleated RBC Nucleated RBC % Sodium Potassium Chloride Carbon Dioxide Anion Gap BUN Creatinine Estim Creat Clear Calc Estimated GFR Glucose POC Capillary Glucose 150 H 153 H 163 H Calcium 02/12/24 02/13/24 20:23 05:27 WBC 10.7 H RBC 3.01 L Hgb 8.1 L D Hct 25.6 L MCV 85.0 MCH 26.9 MCHC 31.6 L RDW 15.9 H Plt Count 180 MPV 11.2 H Immature Gran % (Auto) 0.5 Neut % (Auto) 64.2 Lymph % (Auto) 17.5 L [place] % (Auto) 16.4 H Eos % (Auto) 0.7 Baso % (Auto) 0.7 Lymph # (Auto) 1.87 [place] # (Auto) 1.8 H Eos # (Auto) 0.1 Baso # (Auto) 0.1 Abs Immat Gran (auto) 0.05 H Absolute Neuts (auto) 6.9 H Absolute Nucleated RBC 0.000 Nucleated RBC % 0.0 Sodium 132 L Potassium 3.6 Chloride 105 Carbon Dioxide 26 Anion Gap 1 L BUN 24 H Creatinine 1.10 H Estim Creat Clear Calc 49 Estimated GFR 49 L Glucose 126 H POC Capillary Glucose 178 H Calcium 8.1 L
[2024-02-13] MEDS: SENNA/DOCUSATE SODIUM TABLET 2 TAB PO ×2 (08:09→16:36)
[2024-02-13] MEDS: polyethylene glycoL 3350 17 GM POWD.PACK PO (08:09)
[2024-02-13 08:44] LABS: Glucose Point of Care 116 mg/dl (65-105)
[2024-02-13] MEDS: ONDANSETRON INJ 4 MG/2 ML VIAL IV PUSH (09:52)
--- NOTE | 2024-02-13 10:02 | WPDANESPN ---
Anes - Prog Note Post-Op Date/Time: 02/13/24 10:02 Cardiovascular status: normal Respiratory status: normal Airway patency: baseline Mental status: baseline Post-Op hydration status: normal Vital Signs: Last Vital Signs Temp 36.7 C 02/13/24 06:07 Pulse 81 02/13/24 06:07 Resp 18 02/13/24 06:07 BP 128/53 L 02/13/24 06:07 Pulse Ox 94 02/13/24 06:07 O2 Del Method Room Air 02/13/24 08:39 O2 Flow Rate 2 02/12/24 11:15 Pain Score (VAS): 2 I/O: Intake & Output 02/12/24 02/13/24 02/13/24 23:59 07:59 15:59 Intake Total 720 50 50 Output Total 450 400 Balance 270 -350 50 Laboratory Tests 02/13/24 05:27 02/13/24 05:27 02/12/24 02/12/24 02/12/24 11:57 16:37 20:23 WBC RBC Hgb Hct MCV MCH MCHC RDW Plt Count MPV Immature Gran % (Auto) Neut % (Auto) Lymph % (Auto) [place] % (Auto) Eos % (Auto) Baso % (Auto) Lymph # (Auto) [place] # (Auto) Eos # (Auto) Baso # (Auto) Abs Immat Gran (auto) Absolute Neuts (auto) Absolute Nucleated RBC Nucleated RBC % Sodium Potassium Chloride Carbon Dioxide Anion Gap BUN Creatinine Estim Creat Clear Calc Estimated GFR Glucose POC Capillary Glucose 153 H 163 H 178 H Calcium 02/13/24 02/13/24 05:27 08:36 WBC 10.7 H RBC 3.01 L Hgb 8.1 L D Hct 25.6 L MCV 85.0 MCH 26.9 MCHC 31.6 L RDW 15.9 H Plt Count 180 MPV 11.2 H Immature Gran % (Auto) 0.5 Neut % (Auto) 64.2 Lymph % (Auto) 17.5 L [place] % (Auto) 16.4 H Eos % (Auto) 0.7 Baso % (Auto) 0.7 Lymph # (Auto) 1.87 [place] # (Auto) 1.8 H Eos # (Auto) 0.1 Baso # (Auto) 0.1 Abs Immat Gran (auto) 0.05 H Absolute Neuts (auto) 6.9 H Absolute Nucleated RBC 0.000 Nucleated RBC % 0.0 Sodium 132 L Potassium 3.6 Chloride 105 Carbon Dioxide 26 Anion Gap 1 L BUN 24 H Creatinine 1.10 H Estim Creat Clear Calc 49 Estimated GFR 49 L Glucose 126 H POC Capillary Glucose 116 H Calcium 8.1 L Patient Feedback: Patient satisfied with anesthetic care.
[2024-02-13 11:10] VITALS: BP 125/54; PULSE 83; RESP 18; TEMP 36.6; O2SAT 97
--- NOTE | 2024-02-13 12:13 | P.PNIM_ITS ---
Progress Note: A&P Assessment and Plan (1) Closed intertrochanteric fracture of left femur: Qualifiers: Encounter type: initial encounter Code(s): S72.142A - Displaced intertrochanteric fracture of left femur, initial encounter for closed fracture Status: Acute Assessment and Plan: 02/12/24 s/p ORIF left femur Had emesis this morning, may be related to opiates Schedule ibuprofen IV q8, add IV pantoprazole Schedule acetaminophen Oxycodone 2.5-10mg prn with dilaudid prn for breakthrough pain Zofran prn for nausea (2) Type 2 diabetes mellitus: Code(s): E11.9 - Type 2 diabetes mellitus without complications Status: Acute Assessment and Plan: Seems to be diet controlled, no home meds. Blood sugars relatively controlled, 116-178 during admission so far * Continue SSI. * HgbA1c 6.5 (3) White coat syndrome with hypertension: Code(s): I10 - Essential (primary) hypertension Status: Acute Assessment and Plan: Blood pressure 188/86 on admission in the setting of pain. Blood pressure controlled today, 120's/50's. * BP 148/76 post-op * Monitor (4) Dyslipidemia: Code(s): E78.5 - Hyperlipidemia, unspecified Status: Acute Assessment and Plan: * Resume fenofibrate when diet is tolerated. Time Spent With Patient Time: 59 minutes Subjective Date/time seen: 02/13/24 12:13 Interval history: Had emesis this morning. Moderate to severe hip pain. s/p ORIF yesterday No cp or sob. Likely discharge to rehab, pending therapy eval VSS Mild DEYSI. Creatinine 0.7<1.1. Check a UA, follow up BMP Blood count down overnight, 11.5/35.8>8.1/25.6. Intraoperative blood loss estimated 200ml so may be partially dilutional Review of Systems Review of Systems: 12 systems were reviewed and are negativ e except for as per HPI. All systems reviewed & are unremarkable except as noted in HPI and below Exam Narrative: HEENT: PERRL, sclerae nonicteric, pharyngeal mucosa pink and intact NECK: No JVD. CHEST: Clear to auscultation. Normal effort. HEART: NL S1/S2, regular, no murmur. ABDOMEN: BS+, soft, nontender, no mass, no bruits EXTREMITIES: No cyanosis, edema, or clubbing NEUROLOGIC: CN intact and symmetric to inspection. MUSCULOSKELETAL: Tone and strength symmetric to manager private, dorsiflexion, plantar flexion. PSYCH: Alert. Oriented to person, place, and time. Objective Data Vital Signs Vital Signs: Vital Signs - 24 hr 02/12/24 12:19 02/12/24 13:19 02/12/24 18:50 Temperature 97.8 F 98.3 F 99.1 F Pulse Rate 87 90 91 Respiratory Rate 18 18 18 Blood Pressure 156/77 H 148/76 H 144/58 H Pulse Oximetry 100 99 98 Oxygen Delivery 02/12/24 20:00 02/12/24 21:15 02/13/24 01:15 Temperature 99.2 F 98.2 F Pulse Rate 91 84 Respiratory Rate 18 18 Blood Pressure 162/66 H 125/54 L Pulse Oximetry 100 96 Oxygen Delivery Room Air 02/13/24 05:15 02/13/24 06:07 02/13/24 07:45 Temperature 98.1 F 98.1 F Pulse Rate 81 81 Respiratory Rate 18 18 Blood Pressure 128/53 L 128/53 L Pulse Oximetry 94 94 Oxygen Delivery Room Air 02/13/24 08:39 02/13/24 11:10 Temperature 97.8 F Pulse Rate 83 Respiratory Rate 18 Blood Pressure 125/54 L Pulse Oximetry 97 Oxygen Delivery Room Air Intake/Output Intake/Output: Intake & Output 02/10/24 02/11/24 02/12/24 02/13/24 23:59 23:59 23:59 23:59 Intake Total 1670 100 Output Total 1400 400 Balance 270 -300 Meds/Results Medications: Active Medications Generic Name Dose Route Start Last Admin Trade Name Freq PRN Reason Stop Dose Admin Acetaminophen 650 mg 02/11/24 15:37 Acetaminophen 325 Mg Tablet PO Q4H PRN Fever Cyclobenzaprine HCl 10 mg 02/12/24 11:30 Cyclobenzaprine Hcl 10 Mg Tablet PO Q8H PRN Muscle Spasm Dextrose 12.5 gm 02/12/24 05:06 Dextrose 50% 25 Gm/50 Ml Syringe IV PUSH PRN PRN Hypoglycemia Protocol Glucagon 1 mg 02/12/24 05:06 Glucagon For Inj 1 Mg Vial IM PRN PRN Hypoglycemia Protocol Glucose 15 gm 02/12/24 05:06 Glucose Oral Gel 15 Gm Of Glucse In 37.5 Gm Tube PO PRN PRN Hypoglycemia Protocol Hydromorphone HCl 1 mg 02/12/24 11:30 02/12/24 16:51 Hydromorphone Hcl Inj (*Crx) 1 Mg/Ml Syr IV PUSH 1 mg Q2H PRN Administration Breakthrough Pain Rated 7-10 or NPO Hydromorphone HCl 0.5 mg 02/12/24 11:30 Hydromorphone Hcl Inj (*Crx) 1 Mg/Ml Syr IV PUSH Q2H PRN Breakthrough Pain Rated 4-6 or NPO Hydroxyzine Pamoate 50 mg 02/12/24 11:30 Hydroxyzine Pamoate 25 Mg Capsule PO Q4H PRN Itching Dextrose 1,000 mls @ 100 mls/hr 02/12/24 05:06 Dextrose 5% 1,000 Ml IVPB PRN PRN Hypoglycemia Protocol Ibuprofen 800 mg in 200 mls @ 400 mls/hr 02/12/24 11:30 02/12/24 20:20 Caldolor 800 Mg/200 Ml IVPB Infused Q6H PRN Infusion Breakthrough Pain Rated 1-3 or NPO Insulin Aspart 3 - 6 units 02/12/24 08:00 02/13/24 08:55 Insulin Aspart (*Bkc) 100 Units/Ml SUB-Q Not Given TIDWM COUNTS INCLUDE 234 BEDS AT THE [facility] Protocol Insulin Aspart 1 - 3 units 02/12/24 21:00 02/12/24 22:00 Insulin Aspart (*Bkc) 100 Units/Ml SUB-Q Not Given HS COUNTS INCLUDE 234 BEDS AT THE [facility] Protocol Naloxone HCl 0.1 mg 02/12/24 11:30 Naloxone Hcl 0.4 Mg/Ml Vial IV PUSH Q2M PRN Opiate Reversal Ondansetron HCl 4 mg 02/12/24 09:38 02/12/24 10:23 Ondansetron Inj 4 Mg/2 Ml Vial IV PUSH 4 mg ONCE PRN Administration Nausea Ondansetron HCl 4 mg 02/12/24 11:30 02/13/24 09:52 Ondansetron Inj 4 Mg/2 Ml Vial IV PUSH 4 mg Q4H PRN Administration Nausea And Vomiting Oxycodone/Acetaminophen 1 tablet 02/12/24 13:22 02/12/24 19:55 Oxycodone/Acetaminophen (*Crx) 5-325 Mg Tablet PO 1 tablet Q4H PRN Administration Pain Rated 4-6 Oxycodone/Acetaminophen 1 tab 02/12/24 13:23 02/13/24 08:08 Oxycodone/Acetaminophen (*Crx) 10-325 Mg Tablet PO 1 tab Q4H PRN Administration Pain Rated 7-10 Polyethylene Glycol 17 gm 02/13/24 09:00 02/13/24 08:09 Polyethylene Glycol 3350 17 Gm Powd.Pack PO 17 gm QAM RENITA Administration Promethazine HCl 12.5 mg 02/12/24 13:19 Promethazine Hcl 25 Mg/Ml Ampul IV PUSH Q4H PRN Nausea And Vomiting Rivaroxaban 10 mg 02/12/24 17:00 02/12/24 16:52 Rivaroxaban 10 Mg Tablet PO 10 mg DAILY@17 RENITA Administration Senna/Docusate Sodium 2 tab 02/12/24 17:00 02/13/24 08:09 Senna/Docusate Sodium Tablet PO 2 tab BID RENITA Administration Radiology Results: ITS Impressions Hip/Pelvis X-Ray 02/11/24 13:36 Impression: Acute intertrochanteric fracture of the proximal left femur, as above. Chest X-Ray 02/12/24 07:33 IMPRESSION: 1. Mild atelectasis/scarring at the lateral left lower lung zone. No acute cardiopulmonary disease. 2. Small hiatal hernia. Intraoperative X-Ray 02/12/24 09:46 IMPRESSION: 1. Fluoroscopy utilized during reduction and internal fixation of an intratrochanteric fracture of the proximal left femur. See procedure note for further detail. Labs Labs: Laboratory Results - last 24 hr 02/12/24 02/12/24 02/12/24 11:57 16:37 20:23 WBC RBC Hgb Hct MCV MCH MCHC RDW Plt Count MPV Immature Gran % (Auto) Neut % (Auto) Lymph % (Auto) Harrison % (Auto) Eos % (Auto) Baso % (Auto) Lymph # (Auto) Harrison # (Auto) Eos # (Auto) Baso # (Auto) Abs Immat Gran (auto) Absolute Neuts (auto) Absolute Nucleated RBC Nucleated RBC % Sodium Potassium Chloride Carbon Dioxide Anion Gap BUN Creatinine Estim Creat Clear Calc Estimated GFR Glucose POC Capillary Glucose 153 H 163 H 178 H Calcium 02/13/24 02/13/24 05:27 08:36 WBC 10.7 H RBC 3.01 L Hgb 8.1 L D Hct 25.6 L MCV 85.0 MCH 26.9 MCHC 31.6 L RDW 15.9 H Plt Count 180 MPV 11.2 H Immature Gran % (Auto) 0.5 Neut % (Auto) 64.2 Lymph % (Auto) 17.5 L Harrison % (Auto) 16.4 H Eos % (Auto) 0.7 Baso % (Auto) 0.7 Lymph # (Auto) 1.87 Harrison # (Auto) 1.8 H Eos # (Auto) 0.1 Baso # (Auto) 0.1 Abs Immat Gran (auto) 0.05 H Absolute Neuts (auto) 6.9 H Absolute Nucleated RBC 0.000 Nucleated RBC % 0.0 Sodium 132 L Potassium 3.6 Chloride 105 Carbon Dioxide 26 Anion Gap 1 L BUN 24 H Creatinine 1.10 H Estim Creat Clear Calc 49 Estimated GFR 49 L Glucose 126 H POC Capillary Glucose 116 H Calcium 8.1 L Quality VTE Prophylaxis VTE prophylaxis: mechanical ordered Hospitalist [facility] Advance Care Plan I have confirmed that the patient's Advanced Care Plan is present, code status is documented, or surrogate decision maker is listed in patient medical record.: Yes Medication Reconciliation I have utilized all available resources to obtain, update and review the patients current medications (includes all prescriptions, OTC, herbals, cannabis, and nutritional supplements).: Yes
[2024-02-13 12:18] LABS: Glucose Point of Care 145 mg/dl (65-105)
[2024-02-13] MEDS: oxyCODONE/ACETAMINOPHEN (*CRX) 5-325 MG TABLET 1 TABLET PO (12:59)
[2024-02-13] MEDS: IBUPROFEN IV 800 MG/200 ML 800 MG/200 ML BAG 400 MG IVPB ×2 (14:23→21:33)
[2024-02-13 15:24] VITALS: BP 116/60; PULSE 95; RESP 20; TEMP 37.3; O2SAT 97
[2024-02-13] MEDS: GABAPENTIN 100 MG CAPSULE 200 MG PO (16:36)
[2024-02-13] MEDS: ACETAMINOPHEN 325 MG TABLET 650 MG PO ×2 (16:36→20:37)
[2024-02-13] MEDS: RIVAROXABAN 10 MG TABLET PO (16:37)
[2024-02-13 17:16] LABS: Glucose Point of Care 156 mg/dl (65-105)
[2024-02-13] MEDS: PANTOPRAZOLE SODIUM IV 40 MG VIAL IV PUSH (18:14)
[2024-02-13] MEDS: DEXTROSE 5%/0.9% SOD CHL 1,000 ML 100 ML IV CONT (18:14)
[2024-02-13] MEDS: oxyCODONE HCL (*CRX) 5 MG TAB IR PO (18:15)
[2024-02-13 20:33] LABS: Glucose Point of Care 145 mg/dl (65-105)
[2024-02-13 21:47] VITALS: BP 117/41; PULSE 70; RESP 20; TEMP 36.6; O2SAT 99
[2024-02-14 00:03] VITALS: BP 111/50; PULSE 75; RESP 20; TEMP 36.6; O2SAT 99
[2024-02-14] MEDS: DEXTROSE 5%/0.9% SOD CHL 1,000 ML 100 ML IV CONT (04:47)
[2024-02-14] MEDS: IBUPROFEN IV 800 MG/200 ML 800 MG/200 ML BAG 400 MG IVPB ×2 (05:15→13:27)
[2024-02-14 06:23] VITALS: BP 125/55; PULSE 78; RESP 18; TEMP 36.8; O2SAT 99
--- NOTE | 2024-02-14 07:51 | PM.IMPN ---
Progress Note: A&P Assessment and Plan (1) Closed intertrochanteric fracture of left femur: Qualifiers: Encounter type: initial encounter Code(s): S72.142A - Displaced intertrochanteric fracture of left femur, initial encounter for closed fracture Status: Acute Assessment and Plan: 02/12/24 s/p ORIF left femur Had emesis this morning, may be related to opiates Schedule ibuprofen IV q8, add IV pantoprazole acetaminophen prn Oxycodone 2.5-10mg prn with dilaudid prn for breakthrough pain Zofran prn for nausea (2) Type 2 diabetes mellitus: Code(s): E11.9 - Type 2 diabetes mellitus without complications Status: Acute Assessment and Plan: Seems to be diet controlled, no home meds. Blood sugars relatively controlled, 116-178 during admission so far Continue SSI. HgbA1c 6.5 (3) White coat syndrome with hypertension: Code(s): I10 - Essential (primary) hypertension Status: Acute Assessment and Plan: Blood pressure 188/86 on admission in the setting of pain. Blood pressure controlled today, 120's/50's. BP 148/76 post-op Monitor (4) Dyslipidemia: Code(s): E78.5 - Hyperlipidemia, unspecified Status: Acute Assessment and Plan: Resume fenofibrate when diet is tolerated. Time Spent With Patient Time with patient: 25 - 35 minutes Subjective Date/time seen: 02/14/24 07:51 Interval history: 73-year-old female with degenerative joint disease, dyslipidemia, white coat syndrome with hypertension, and type 2 diabetes mellitus who presented to the emergency department via EMS for evaluation of left hip pain after fall. The patient provides the following history. While leaving work today she tripped on a curb and fell hard onto her left side with immediate pain in her left hip. There was no head trauma or loss of consciousness in the fall and she has no other complaints besides the left hip pain. She denies lightheadedness, dizziness, recent cold and flu symptoms, chest pain, pleuritic pain, palpitations, vomiting, diarrhea, and dysuria. Of note, she recently finished antibiotics for a dental abscess of the left upper molar and she is in a process of having a root canal done in upcoming weeks. s/p ORIF 02/12 Likely discharge to rehab, pending therapy eval pt is seen and examined Review of Systems Review of Systems: 12 systems were reviewed and are negative except for as per HPI. All systems reviewed & are unremarkable except as noted in HPI and below Exam Narrative: HEENT: PERRL, sclerae nonicteric, pharyngeal mucosa pink and intact NECK: No JVD. CHEST: Clear to auscultation. Normal effort. HEART: NL S1/S2, regular, no murmur. ABDOMEN: BS+, soft, nontender, no mass, no bruits EXTREMITIES: No cyanosis, edema, or clubbing NEUROLOGIC: CN intact and symmetric to inspection. 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 PSYCH: Alert. Oriented to person, place, and time. Objective Data Vital Signs Vital Signs: Vital Signs - 24 hr 02/13/24 08:39 02/13/24 11:10 02/13/24 15:24 Temperature 97.8 F 99.1 F Pulse Rate 83 95 Respiratory Rate 18 20 Blood Pressure 125/54 L 116/60 Pulse Oximetry 97 97 Oxygen Delivery Room Air 02/13/24 20:00 02/13/24 21:47 02/14/24 00:03 Temperature 97.8 F 97.8 F Pulse Rate 70 75 Respiratory Rate 20 20 Blood Pressure 117/41 L 111/50 L Pulse Oximetry 99 99 Oxygen Delivery Room Air 02/14/24 06:23 Temperature 98.3 F Pulse Rate 78 Respiratory Rate 18 Blood Pressure 125/55 L Pulse Oximetry 99 Oxygen Delivery Intake/Output Intake/Output: Intake & Output 02/11/24 02/12/24 02/13/24 02/14/24 23:59 23:59 23:59 23:59 Intake Total 1670 1590 1200 Output Total 1400 400 Balance 270 1190 1200 Meds/Results Medications: Active Medications Generic Name Dose Route Start Last Admin Trade Name Freq PRN Reason Stop Dose Admin Acetaminophen 650 mg 02/13/24 17:00 02/13/24 20:37 Acetaminophen 325 Mg Tablet PO 650 mg QID RENITA Administration Cyclobenzaprine HCl 10 mg 02/12/24 11:30 Cyclobenzaprine Hcl 10 Mg Tablet PO Q8H PRN Muscle Spasm Dextrose 12.5 gm 02/12/24 05:06 Dextrose 50% 25 Gm/50 Ml Syringe IV PUSH PRN PRN Hypoglycemia Protocol Gabapentin 200 mg 02/13/24 17:00 02/13/24 16:36 Gabapentin 100 Mg Capsule PO 200 mg BID RENITA Administration Glucagon 1 mg 02/12/24 05:06 Glucagon For Inj 1 Mg Vial IM PRN PRN Hypoglycemia Protocol Glucose 15 gm 02/12/24 05:06 Glucose Oral Gel 15 Gm Of Glucse In 37.5 Gm Tube PO PRN PRN Hypoglycemia Protocol Hydromorphone HCl 1 mg 02/12/24 11:30 02/12/24 16:51 Hydromorphone Hcl Inj (*Crx) 1 Mg/Ml Syr IV PUSH 1 mg Q2H PRN Administration Breakthrough Pain Rated 7-10 or NPO Hydromorphone HCl 0.5 mg 02/12/24 11:30 Hydromorphone Hcl Inj (*Crx) 1 Mg/Ml Syr IV PUSH Q2H PRN Breakthrough Pain Rated 4-6 or NPO Hydroxyzine Pamoate 50 mg 02/12/24 11:30 Hydroxyzine Pamoate 25 Mg Capsule PO Q4H PRN Itching Dextrose 1,000 mls @ 100 mls/hr 02/12/24 05:06 Dextrose 5% 1,000 Ml IVPB PRN PRN Hypoglycemia Protocol Ibuprofen 800 mg in 200 mls @ 400 mls/hr 02/13/24 14:00 02/14/24 05:45 Caldolor 800 Mg/200 Ml IVPB Infused Q8H RENITA Infusion Dextrose/Sodium Chloride 1,000 mls @ 100 mls/hr 02/13/24 17:20 02/14/24 04:47 Dextrose 5% Sodium Chloride 0.9% IV CONT 100 mls/hr .Q10H RENITA Administration Insulin Aspart 3 - 6 units 02/12/24 08:00 02/13/24 17:19 Insulin Aspart (*Bkc) 100 Units/Ml SUB-Q Not Given TIDWM [facility] Protocol Insulin Aspart 1 - 3 units 02/12/24 21:00 02/13/24 20:36 Insulin Aspart (*Bkc) 100 Units/Ml SUB-Q Not Given HS [facility] Protocol Naloxone HCl 0.1 mg 02/12/24 11:30 Naloxone Hcl 0.4 Mg/Ml Vial IV PUSH Q2M PRN Opiate Reversal Ondansetron HCl 4 mg 02/12/24 09:38 02/12/24 10:23 Ondansetron Inj 4 Mg/2 Ml Vial IV PUSH 4 mg ONCE PRN Administration Nausea Ondansetron HCl 4 mg 02/12/24 11:30 02/13/24 09:52 Ondansetron Inj 4 Mg/2 Ml Vial IV PUSH 4 mg Q4H PRN Administration Nausea And Vomiting Oxycodone HCl 10 mg 02/13/24 13:34 Oxycodone Hcl (*Crx) 5 Mg Tab Ir PO Q4H PRN Pain Rated 8-10 Oxycodone HCl 5 mg 02/13/24 13:34 02/13/24 18:15 Oxycodone Hcl (*Crx) 5 Mg Tab Ir PO 5 mg Q4H PRN Administration Pain Rated 5-7 Pantoprazole Sodium 40 mg 02/13/24 17:50 02/13/24 18:14 Pantoprazole Sodium Iv 40 Mg Vial IV PUSH 40 mg DAILY RENITA Administration Polyethylene Glycol 17 gm 02/13/24 09:00 02/13/24 08:09 Polyethylene Glycol 3350 17 Gm Powd.Pack PO 17 gm QAM RENITA Administration Promethazine HCl 12.5 mg 02/12/24 13:19 Promethazine Hcl 25 Mg/Ml Ampul IV PUSH Q4H PRN Nausea And Vomiting Rivaroxaban 10 mg 02/12/24 17:00 02/13/24 16:37 Rivaroxaban 10 Mg Tablet PO 10 mg DAILY@17 RENITA Administration Senna/Docusate Sodium 2 tab 02/12/24 17:00 02/13/24 16:36 Senna/Docusate Sodium Tablet PO 2 tab BID RENITA Administration Radiology Results: ITS Impressions Hip/Pelvis X-Ray 02/11/24 13:36 Impression: Acute intertrochanteric fracture of the proximal left femur, as above. Chest X-Ray 02/12/24 07:33 IMPRESSION: 1. Mild atelectasis/scarring at the lateral left lower lung zone. No acute cardiopulmonary disease. 2. Small hiatal hernia. Intraoperative X-Ray 02/12/24 09:46 IMPRESSION: 1. Fluoroscopy utilized during reduction and internal fixation of an intratrochanteric fracture of the proximal left femur. See procedure note for further detail. Labs Labs: Laboratory Results - last 24 hr 02/13/24 02/13/24 02/13/24 08:36 12:10 17:10 POC Capillary Glucose 116 H 145 H 156 H 02/13/24 20:02 POC Capillary Glucose 145 H Quality VTE Prophylaxis VTE prophylaxis: mechanical ordered
[2024-02-14] MEDS: SENNA/DOCUSATE SODIUM TABLET 2 TAB PO (08:18)
[2024-02-14] MEDS: GABAPENTIN 100 MG CAPSULE 200 MG PO (08:18)
[2024-02-14] MEDS: ACETAMINOPHEN 325 MG TABLET 650 MG PO ×2 (08:18→13:27)
[2024-02-14] MEDS: polyethylene glycoL 3350 17 GM POWD.PACK PO (08:19)
[2024-02-14] MEDS: PANTOPRAZOLE SODIUM IV 40 MG VIAL IV PUSH (08:19)
[2024-02-14] MEDS: oxyCODONE HCL (*CRX) 5 MG TAB IR PO ×2 (08:22→16:10)
[2024-02-14 08:35] LABS: Glucose Point of Care 150 mg/dl (65-105)
[2024-02-14 08:50] LABS: Anion Gap 4 mmol/L (4-12); Blood Urea Nitrogen 33 mg/dL (7-17); Calcium 7.8 mg/dL (8.4-10.2); Carbon Dioxide 22 mmol/L (22-30); Chloride 110 mmol/L (98-107); Estimated CRCL calculation 42 ml/min; Estimated Glomerular Filt Rate 40; Glucose 383 mg/dL (65-110); Potassium 3.4 mmol/L (3.4-5.0); Sodium 136 mmol/L (137-145)
--- NOTE | 2024-02-14 11:24 | PM.DS ---
DS: Admitting Diagnosis Discharge Date 02/13 Admitting Diagnosis fall DS: Discharge Diagnosis Discharge Diagnosis (1) Closed intertrochanteric fracture of left femur: Qualifiers: Encounter type: initial encounter Code(s): S72.142A - Displaced intertrochanteric fracture of left femur, initial encounter for closed fracture Status: Acute (2) Type 2 diabetes mellitus: Code(s): E11.9 - Type 2 diabetes mellitus without complications Status: Acute (3) White coat syndrome with hypertension: Code(s): I10 - Essential (primary) hypertension Status: Acute (4) Dyslipidemia: Code(s): E78.5 - Hyperlipidemia, unspecified Status: Acute DS: Summary Hospital Course Hospital Course: This is a very pleasant 73-year-old female with degenerative joint disease, dyslipidemia, white coat syndrome with hypertension, and type 2 diabetes mellitus who presented to the emergency department via EMS for evaluation of left hip pain after fall. The patient provides the following history. While leaving work today she tripped on a curb and fell hard onto her left side with immediate pain in her left hip. There was no head trauma or loss of consciousness in the fall and she has no other complaints besides the left hip pain. She denies lightheadedness, dizziness, recent cold and flu symptoms, chest pain, pleuritic pain, palpitations, vomiting, diarrhea, and dysuria. Of note, she recently finished antibiotics for a dental abscess of the left upper molar and she is in a process of having a root canal done in upcoming weeks. She is not have any pain or discomfort at this time. 02/12/24 s/p ORIF left femur nausea- resolved working with PT/OT discharged to rehab Status at Discharge Functional status at discharge: uses cane/walker Overall status at discharge: patient is progressing back to baseline Time Spent with Patient Time attestation: Total time spent providing and/or coordinating discharge services: Time spent: Greater than 30 minutes Exam Narrative: HEENT: PERRL, sclerae nonicteric, pharyngeal mucosa pink and intact NECK: No JVD. CHEST: Clear to auscultation. Normal effort. HEART: NL S1/S2, regular, no murmur. ABDOMEN: BS+, soft, nontender, no mass, no bruits EXTREMITIES: No cyanosis, edema, or clubbing NEUROLOGIC: CN intact and symmetric to inspection. 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 PSYCH: Alert. Oriented to person, place, and time. Const: General: comfortable Resp: Effort & Inspection: normal respiratory effort DS: Data Data Completed and Pending Completed studies during hospitalization: chest xray Labs on day of discharge: Labs from last 24 hours 02/14/24 02/14/24 02/13/24 08:28 08:22 20:02 Sodium 136 L Potassium 3.4 Chloride 110 H Carbon Dioxide 22 Anion Gap 4 BUN 33 H Creatinine 1.30 H Estim Creat Clear Calc 42 Estimated GFR 40 L Glucose 383 H POC Capillary Glucose 150 H 145 H Calcium 7.8 L 02/13/24 02/13/24 17:10 12:10 Sodium Potassium Chloride Carbon Dioxide Anion Gap BUN Creatinine Estim Creat Clear Calc Estimated GFR Glucose POC Capillary Glucose 156 H 145 H Calcium Discharge Plan Discharge Attending physician on discharge: Fabrizio Echeverria Consulting providers: Joaquim Russell Discharging Clinician: Steph Barry [facility] Activity: june shower Diet: as tolerated and diabetic Discharge Instructions: You had reduction internal fixation left intertrochanteric fracture with DR Russell. Please follow up with orthopedic surgery for the instructions for the duration of your Xarelto (blood thinners). I will send you 90 days supplies but each orthopedic typically have their own preferences and recommendation for duration of the therapy. You blood sugars were high while you were here- which could be due to stress/trauma/surgery- please f/u with your PCP for further evaluation. Patient Instructions: Rivaroxaban (By mouth) Patient Language: Romanian Follow-up/Referrals: Joaquim Russell MD [Physician] - 2 Weeks Jaciel Woody DO [Primary Care Provider] - 2 Weeks Discharge Medications: New gabapentin 100 mg Capsule 200 mg PO BID Qty: 12 0RF oxycodone 5 mg Tablet 5 mg PO Q4H PRN (Reason: Pain Rated 5-7) Qty: 10 0RF Rx Instructions: please dispense 10 tablets polyethylene glycol 3350 [Miralax] 17 gram Powder In Packet 17 g PO QAM Qty: 170 0RF hydroxyzine HCl 25 mg tablet 25 mg PO TID PRN (Reason: anxiety) Qty: 30 0RF Rx Instructions: take 25-50 mg tid prn Xarelto 10 mg Tablet 10 mg PO DAILY@17 Qty: 90 0RF ondansetron 4 mg tablet,disintegrating 4 mg PO Q8H PRN (Reason: nausea and vomiting) Qty: 14 0RF Rx Instructions: please dispense 14 tablets Continued Imvexxy Maintenance Pack 4 mcg insert 4 mcg VAGINAL 2XW Patient Comments: Saturday, cholecalciferol (vitamin D3) 1,250 mcg (50,000 unit) capsule 50,000 unit PO 2XW Patient Comments: Saturday, calcium carbonate [Calcium 600] 1 tablet PO BID celecoxib [Celebrex] 100 mg capsule 100 mg PO BID PRN (Reason: pain) fenofibrate 160 mg tablet 160 mg PO DAILY Qty: 90 1RF Date of admission: 02/12/24 10:16 Primary Care Provider: Jaciel Woody Admitting Provider: Zac Gill Attending physician on admission: Michelle Barry Condition: Stable Quality VTE Prophylaxis VTE prophylaxis: mechanical ordered Hospitalist MIPS Heart Failure (Exclusion) Patient has history of Heart Transplant or Left Ventricular Assistive Device?: No IF YES, STOP HERE Heart Failure (Qualifier) Patient has current or prior documentation of LVEF less than or equal to 40%, or mod/servere depressed LVSF?: No IF NO, STOP HERE
[2024-02-14 12:15] LABS: Glucose Point of Care 146 mg/dl (65-105)
[2024-02-14 14:10] VITALS: BP 147/62; PULSE 84; RESP 18; TEMP 36.4; O2SAT 98
== END 2024-02-14 16:30 | DRG 482 ==
LOC: ANHED 15:59 → ANH3MEDSUR 16:29 → ANH2MED 17:36
PROVIDERS: Nurse Practitioner Acute Care; Orthopaedic Surgery; Physician Assistant; Admitting Provider Internal Medicine; Emergency Provider Student in an Organized Health Care Education/Training Program; PCP Internal Medicine; Visit Provider Nurse Practitioner
PROC: 0QS734Z Reposition Left Upper Femur with Internal Fixation Device, Percutaneous Approach (ICD-10-PCS; CPT 27245; principal; 2024-02-12 08:00)
DX: S72.142A Displaced intertrochanteric fracture of left femur, initial encounter for closed fracture (principal); I10 Essential (primary) hypertension; E78.5 Hyperlipidemia, unspecified; E11.9 Type 2 diabetes mellitus without complications; E55.9 Vitamin D deficiency, unspecified; W01.0XXA Fall on same level from slipping, tripping and stumbling without subsequent striking against object, initial encounter; Z96.652 Presence of left artificial knee joint
CPT/HCPCS: 36415; 71045; 73502; 80048; 80053; 82948; 85025; 85027; 85610; 85730; 93005; 96374; 96375; 96376; 97110; 97161; 97165; 97530; 99199; 99285; A9270; C1713; G0378; J0330; J0690; J1171; J1741; J2003; J2250; J2405; J2470; J2704; J3010; J3370; J7030; J7042; J7120

== ENCOUNTER 2024-12-09 08:24 | Outpatient (CLI) | payer MEDICARE, OTHER, SELFPAY ==
--- NOTE | ~2024-12-09 | MM_ITS ---
EXAMINATION: MM screening [facility] BI w charlene HISTORY: Screening TECHNIQUE: Craniocaudal and mediolateral oblique 3-D tomosynthesis images were obtained and synthetic 2-D images were generated. CAD analysis was submitted and interpreted. COMPARISON: Comparison to multiple prior studies sequentially, with oldest reviewed study dated 02/22/2020. BREAST PARENCHYMAL COMPOSITION: Not dense: There are scattered areas of fibroglandular density. FINDINGS: There is no evidence of suspicious mass, calcification, or architectural distortion to suggest malignancy in either breast. There has been no suspicious interval change. IMPRESSION: 1. No mammographic evidence of malignancy. 2. Recommend routine screening mammography in one year. BI-RADS Category 1: Negative Reviewed, dictated and finalized at location B.
--- NOTE | ~2024-12-09 | DEXA_ITS ---
Bone Density Report Name: CANDIDA KEATING Age: 74 Sex: Female Ethnicity: White Date of : 1950 Indication: osteopenia; monitoring treatment; height loss; prior fracture; hysterectomy; Referring Provider: CLINTON, LETICIA Study: Bone densitometry was performed. Exam Date: December 09, 2024 Accession number: [id number] Bone Density: Region BMD T-score Z-score Classification AP Spine(L1-L4) 0.756 -2.6 -0.3 Osteoporosis Femoral Neck (Right) 0.629 -2.0 0.0 Osteopenia Total Hip (Right) 0.752 -1.6 0.1 Osteopenia World Health Organization criteria for BMD impression classify patients as: Normal (T-score at or above -1.0), Osteopenia (T-score between -1.0 and -2.5), or Osteoporosis (T-score at or below -2.5). 10-year Fracture Risk: FRAX not reported because: Some T-score for Spine Total or Hip Total or Femoral Neck at or below -2.5 Prior hip or vertebral fracture Previous Exams: -- Region Exam Age BMD T-score BMD Change BMD Change Date g/cm2 vs Baseline vs Previous -- AP Spine (L1-L4) 12/09/2024 74 0.756 -2.6 -20.2%# -13.1%# 11/18/2020 70 0.869 -1.6 -8.2%# 4.6%* 11/04/2018 68 0.831 -2.0 -12.2%# 9.0%# 08/07/2016 66 0.762 -2.6 -19.5%* -2.8%# 01/11/2014 63 0.784 -2.4 -17.2%# -12.6%# 01/07/2012 61 0.896 -1.4 -5.3%* 7.0%* 12/18/2010 60 0.838 -1.9 -11.5%* -6.5%* 11/17/2008 58 0.896 -1.4 -5.3%* -1.8% 07/23/2007 57 0.912 -1.2 -3.6%* -3.6%* 12/23/2003 53 0.946 -0.9 Total Hip(Right) 12/09/2024 74 0.752 -1.6 -15.2%# -15.2%# 12/05/2022 72 0.887 -0.5 -0.1%# 3.9%* 11/18/2020 70 0.853 -0.7 -3.9%# 2.5% 11/04/2018 68 0.832 -0.9 -6.3%# -1.6%# 08/07/2016 66 0.845 -0.8 -4.8%# -6.0%* 01/11/2014 63 0.899 -0.4 1.2%# -0.7% 01/07/2012 61 0.905 -0.3 2.0%# 12.0%* 12/18/2010 60 0.808 -1.1 -9.0%# -10.3%* 11/17/2008 58 0.901 -0.3 1.5%# 1.5%# 08/25/2002 52 0.888 -0.4 -- *Denotes significance at 95% confidence level, LSC for AP Spine = 0.022 g/cm2, LSC for Total Hip = 0.027 g/cm2 # Denotes dissimilar scan types or analysis methods Clinical Information Provided by Patient: Have had a previous hip or vertebral fracture Has had a low trauma fracture Is being treated for osteoporosis Has used the following medications: HRT (i.e. estrogen/hormone therapy), Prolia (i.e. denosumab), Vitamin D, Calcium, imvexxy vaginal insert Has the following medical conditions: Hysterectomy Patient maximum height was 66 Menopause Age: 50 No regular weight bearing exercise Drinks caffeinated beverages Onset of menses at age 14 Number of children 2 Impression: The patient has established osteoporosis, based on the Total Spine T-score and the existence of a prior fracture. The patient has risk factors, including: previous fracture. Unable to evaluate interval change due to the use of different scan modes. Discussion: PATIENT UNDER TREATMENT WITH NO SIGNIFICANT BMD LOSS SINCE LAST EXAM. In an untreated patient, BMD typically declines with age. A lack of decline or gain is usually a sign that treatment is efficacious and fracture risk is reduced. It is important to ask patients whether they are taking their medications and to encourage continued and appropriate compliance with their osteoporosis therapies to reduce fracture risk. It is also important to review their risk factors and encourage appropriate calcium and vitamin D intakes, exercise, fall prevention and other lifestyle measures. Follow-Up: Consider a repeat BMD and Vertebral Fracture Assessment (VFA) exam in 2 years or sooner if medically necessary, to reassess this patient's status. Reported by: BRIAN on 12/09/2024 8:58:00 AM. Reviewed, dictated and finalized at location A.
== END 2024-12-09 08:25 | disposition home or self-care (01) ==
PROVIDERS: PCP Obstetrics & Gynecology Gynecology
DX: Z12.31 Encounter for screening mammogram for malignant neoplasm of breast (principal); Z78.0 Asymptomatic menopausal state; M85.88 Other specified disorders of bone density and structure, other site; M81.0 Age-related osteoporosis without current pathological fracture; M85.851 Other specified disorders of bone density and structure, right thigh
CPT/HCPCS: 77063; 77067; 77080